=== PATIENT | male | born 1955 | race African-American/Black ===

== ENCOUNTER 2018-04-28 17:55 | Emergency (ER) | payer OTHER ==
[~2018-04-28] VITALS: Ht 175.3 cm; Wt 74.8 kg
[2018-04-28 18:06] VITALS: BP 147/77
[2018-04-28] MEDS ORDERED: ACETAMINOPHEN 325 MG TAB PO ONE (19:25)
[2018-04-28] MEDS ORDERED: KETOROLAC 30 MG/ML VIAL IM ONE (19:25)
[2018-04-28 20:01] VITALS: BP 147/77
== END 2018-04-28 20:02 | disposition home or self-care (01) ==
LOC: MED 17:55
DX: S73.101A Unspecified sprain of right hip, initial encounter (principal); S39.012A Strain of muscle, fascia and tendon of lower back, initial encounter; E11.9 Type 2 diabetes mellitus without complications; V23.4XXA Motorcycle driver injured in collision with car, pick-up truck or van in traffic accident, initial encounter; Y93.55 Activity, bike riding; Y92.488 Other paved roadways as the place of occurrence of the external cause; Y99.8 Other external cause status
CPT/HCPCS: 72110; 72220; 96372; 99284; J1885

== ENCOUNTER 2018-08-28 13:55 | Emergency (ER) | payer OTHER, MEDICAID ==
[~2018-08-28] VITALS: Ht 175.3 cm; Wt 74.8 kg
[2018-08-28 14:01] VITALS: BP 151/75
[2018-08-28] MEDS: BACITRACIN OINT 500 UNITS/GM PKT TP ONE (16:47)
[2018-08-28 17:57] VITALS: BP 140/72
== END 2018-08-28 17:56 | disposition home or self-care (01) ==
LOC: MED 13:55
DX: E11.621 Type 2 diabetes mellitus with foot ulcer (principal); L97.419 Non-pressure chronic ulcer of right heel and midfoot with unspecified severity
CPT/HCPCS: 73630; 87070; 87186; 99284

== ENCOUNTER 2018-09-12 15:58 | Inpatient (IN) | payer OTHER, MEDICAID ==
[~2018-09-12] VITALS: Ht 175.3 cm; Wt 72.6 kg
--- NOTE | 2018-09-12 16:16 | NUR ---
patient taken via wheelchair to er bed 4
[2018-09-12 16:19] VITALS: BP 162/78
--- NOTE | 2018-09-12 16:33 | NUR ---
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 PAIN 03/24 hx--dm rx---metformin 500mg bid, glipizide 10mg bid Addendum: 09/12/18 at 1724 by [email or web address] BLIND RIGHT EYE.
[2018-09-12] MEDS ORDERED: KETOROLAC 15 MG/ML VIAL IVP ONE (16:55)
[2018-09-12] MEDS ORDERED: NACL 0.9% 1,000 ML IV SCH (16:55)
[2018-09-12] MEDS ORDERED: ACETAMINOPHEN 325 MG TAB PO ONE (17:05)
--- NOTE | 2018-09-12 17:12 | NUR ---
X RAY AT BEDSIDE.
[2018-09-12 17:18] LABS: BASOPHILS % (AUTO) 0.2 % (0.0-2.0); EOSINOPHILS # (AUTO) 0.1 K/uL (0-0.4); EOSINOPHILS % (AUTO) 0.4 % (0.0-4.0); HEMATOCRIT 37.3 % (36-52); HEMOGLOBIN 12.2 g/dL (12.0-18.0); LYMPHOCYTES % (AUTO) 7.4 % (20.5-51.1); MEAN CORPUSCULAR HEMOGLOBIN 27 pg (27-31); MEAN CORPUSCULAR HGB CONC 33 g/dL (33-37); MONOCYTES # (AUTO) 0.7 K/uL (0.8-1.0); MONOCYTES % (AUTO) 5.3 % (1.7-9.3); NEUTROPHILS # (AUTO) 12.1 K/uL (1.8-7.7); NEUTROPHILS % (AUTO) 86.7 % (42.2-75.2); PLATELET COUNT (AUTO) 458 K/uL (140-450); RED BLOOD CELL COUNT(AUTO) 4.49 MIL/uL (4.20-6.10); RED CELL DISTRIBUTION WIDTH 13.3 % (11.6-13.7)
[2018-09-12 17:48] LABS: BILIRUBIN,URINE NEGATIVE (NEGATIVE); BLOOD, URINE 2+ (NEGATIVE); COLOR,URINE YELLOW (YELLOW); LEUKOCYTE ESTERASE ,URINE NEGATIVE (NEGATIVE); NITRITE, URINE NEGATIVE (NEGATIVE); UGLUCOSE 3+ (NEGATIVE)
[2018-09-12 17:49] LABS: APPEARANCE,URINE SLIGHTLY HAZY (CLEAR)
[2018-09-12 17:53] LABS: RBC,URINE 11-20 (MOD) /HPF (0-5); WBC,URINE 0-5 (RARE) /HPF (0-5)
[2018-09-12 18:09] LABS: ANION GAP 14.6 (8-16); CARBON DIOXIDE 31.6 mmol/L (21-32); CREATININE 1.5 mg/dL (0.7-1.3); POTASSIUM 5.2 mmol/L (3.5-5.1); TOTAL BILIRUBIN 0.4 mg/dL (0.0-1.0)
[2018-09-12] MEDS ORDERED: INSULIN REGULAR, HUMAN 100 UNIT/ML VIAL SUBQ ONE (18:20)
[2018-09-12] MEDS ORDERED: AMPICILLIN/SULBACTAM 3 GM in NACL 0.9% 100 ML IV ONE (18:20)
[2018-09-12] MEDS ORDERED: NACL 0.9% 1,000 ML IV ONE (18:20)
[2018-09-12] MEDS ORDERED: AMPICILLIN/SULBACTAM 3 GM VIAL ONE (18:33)
[2018-09-12] MEDS ORDERED: DOCUSATE SODIUM 100 MG GELCAP PO PRN (18:35)
[2018-09-12] MEDS ORDERED: HYDROcodone/APAP 5/325 MG 1 TAB TAB PO PRN (18:35)
[2018-09-12] MEDS ORDERED: MORPHINE SULFATE 2 MG/ML SYR IVP PRN (18:35)
[2018-09-12] MEDS ORDERED: ONDANSETRON 4 MG/2 ML VIAL IM/IVP PRN (18:35)
[2018-09-12] MEDS ORDERED: DEXTROSE 50% 50 ML SYR IVP PRN (18:35)
[2018-09-12] MEDS ORDERED: GLIP10TA3 PO (18:56)
[2018-09-12] MEDS ORDERED: METF500T2 PO (18:56)
--- NOTE | 2018-09-12 19:05 | NUR ---
PT TAKEN TO TELE FLOOR BY [facility] AND EMT KWESI
--- NOTE | 2018-09-12 19:15 | NUR ---
Admitted from ED , with chief complaint of BILATERAL FOOT PAIN. Pt is 63 y/o ,Male, Cooperative, Awake, Alert and Orientedx4. Pt oriented to call light, bed, phone,television, bathroom, smoking policy, visiting hours, procedures, ID bracelet on. Safety reinforced. Will continue to monitor.
--- NOTE | 2018-09-12 19:16 | NUR ---
Patient will be admitted to care of DR NEW. Admited to TELE. Will go to room 124B. Belongings list completed. Report to MOO MADRID.
[2018-09-12 19:41] LABS: THYROID STIMULATING HORMONE 2.01 uIU/mL (0.34-3.74)
[2018-09-12 19:53] LABS: BARBITURATE, URINE NEG. ng/ml (NEG <=200); BENZODIAZEPINE, URINE NEG. ng/mL (NEG <=200); CANNABINOID, URINE NEG. ng/mL (NEG <=50); COCAINE, URINE NEG. ng/mL (NEG <=300); OPIATE, URINE NEG. ng/mL (NEG <=2000); PHENCYCLIDINE SCREEN,URINE NEG. ng/mL (NEG <=25)
[2018-09-12 20:29] VITALS: BP 101/55
--- NOTE | 2018-09-12 20:30 | NUR ---
SEEN PT AWAKE, ALERT AND ORIENTED JUST FINISHED W/ ULTRASOUND OF HIS LEGS. PT'S IV ACCESS CAME OFF. WILL INSERT NEW IV. PT WANTS SOMETHING TO EAT. WILL ASK MD BECAUSE THE ORDER RIGHT NOW IS NPO AFTER MIDNIGHT. PT VERBALIZED UNDERSTANDING.
--- NOTE | 2018-09-12 20:50 | NUR ---
NEW IV INSERTED ON RT AC G20 W/ GOOD BLOOD RETURN. BLOOD SUGAR CHECKED: 250. WILL COVER WITH INSULIN PER SLIDING SCALE. 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 HE SAID HE CAN EAT WHATEVER IS AVAILABLE RIGHT NOW. WILL ASKED FOR TUNA SANDWICH AND SUGAR-FREE JELLO [facility]
--- NOTE | 2018-09-12 21:00 | NUR ---
ASKED MD ABOUT WOUND CULTURE. HE SAID "OK TO COLLECT IT." ASKED IF HE SAW THE K LEVEL OF 5.2 HE SAID "NO". HE LOOKED IT UP AND HE SAID, "I'LL ORDER LACTULOSE."
--- NOTE | 2018-09-12 21:05 | NUR ---
WOUND ON RT AND LEFT FOOT CLEANSED W/ SALINE AND SWABBED FOR CULTURE PER MD ORDER THEN OPTIFORM DRESSING APPLIED.
[2018-09-12] MEDS ORDERED: LACTULOSE 20 GM/30 ML UDC PO ONE (21:20)
[2018-09-12] MEDS: NACL 0.9% 1,000 ML IV SCH (21:30)
--- NOTE | 2018-09-12 21:30 | NUR ---
PT STARTED ON NS@ 60ML/HR ORDERED. INSULIN 4UNITS GIVEN PER SLIDING SCALE. LACTULOSE PO GIVEN FOR K OF 5.2 ORDERED. PT GIVEN TUNA SANDWICH AND JELLO. PT DENIES ANY OTHER NEEDS. CALL LIGHT W/IN REACH.
[2018-09-12] MEDS: BLOOD GLUCOSE MONITORING 1 DEV DEV FS SCH (21:31)
[2018-09-12] MEDS: INSULIN LISPRO SLIDING SCALE 100 UNITS/ML VIAL SUBQ PRN (21:45)
[2018-09-13 00:30] VITALS: BP 135/70
--- NOTE | 2018-09-13 00:30 | NUR ---
SEEN PT ASLEEP BUT AROUSABLE. VITAL SIGNS CHECKED. PT DENIES ANY DISCOMFORT. SAFETY ENSURED. CALL LIGHT W/IN REACH.
--- NOTE | 2018-09-13 01:40 | NUR ---
SPOKE TO MD RESIDENT REGARDING PT'S NEED FOR WOUND CULTURE OF LEFT FOOT. HE SAID "I'LL PUT THE ORDER IN."
[2018-09-13] MEDS ORDERED: cefTRIAXone 1,000 MG VIAL ONE (01:53)
[2018-09-13 05:00] VITALS: BP 128/51
[2018-09-13] MEDS ORDERED: CLINDAMYCIN 600 MG in DEXTROSE 5% 50 ML IV SCH (05:00)
--- NOTE | 2018-09-13 05:00 | NUR ---
SEEN PT COVERED W/ BLANKET. VITAL SIGNS CHECKED. PT HAS LOW GRADE TEMP OF 100.2 PT SAID BECAUSE HE WAS COVERED. PT DENIES ANY DISCOMFORT. IV ATB GIVEN W/ TEACHINGS. PT SAID HE HAD BM EARLIER ON BEDPAN. WILL CONTINUE TO MONITOR.
[2018-09-13] MEDS ORDERED: CLINDAMYCIN 600 MG/4 ML VIAL ONE (05:11)
--- NOTE | 2018-09-13 05:35 | NUR ---
PT'S RT FOOT DRAINING A LOT. WOUND CLEANSED AND COVERED W/ NON-ADHESIVE FOAM DRESSING AND ADVISED TO ELEVATE. PT VERBALIZED UNDERSTANDING. PT'S IV APPEARS SWOLLEN. IV STOPPED RIGHT NOW. ICE PACK APPLIED AND KEPT ELEVATED. WILL INSERT NEW IV.
[2018-09-13 06:30] LABS: BASOPHILS % (AUTO) 0.2 % (0.0-2.0); EOSINOPHILS # (AUTO) 0.2 K/uL (0-0.4); EOSINOPHILS % (AUTO) 1.2 % (0.0-4.0); HEMATOCRIT 32.7 % (36-52); HEMOGLOBIN 10.5 g/dL (12.0-18.0); LYMPHOCYTES # (AUTO) 0.6 K/uL (2.0-11.5); LYMPHOCYTES % (AUTO) 4.3 % (20.5-51.1); MEAN CORPUSCULAR HEMOGLOBIN 27 pg (27-31); MEAN CORPUSCULAR HGB CONC 32 g/dL (33-37); MEAN CORPUSCULAR VOLUME 82.6 fL (80-94); MONOCYTES # (AUTO) 0.8 K/uL (0.8-1.0); NEUTROPHILS # (AUTO) 11.5 K/uL (1.8-7.7); NEUTROPHILS % (AUTO) 88.3 % (42.2-75.2); PLATELET COUNT (AUTO) 358 K/uL (140-450); RED BLOOD CELL COUNT(AUTO) 3.96 MIL/uL (4.20-6.10); RED CELL DISTRIBUTION WIDTH 13.1 % (11.6-13.7)
[2018-09-13 06:57] LABS: CREATININE 1.3 mg/dL (0.7-1.3)
[2018-09-13] MEDS: BLOOD GLUCOSE MONITORING 1 DEV DEV FS SCH ×4 (07:00→22:12)
[2018-09-13] MEDS: INSULIN LISPRO SLIDING SCALE 100 UNITS/ML VIAL SUBQ PRN ×4 (07:02→22:14)
[2018-09-13 07:07] LABS: CHOL/HDL RATIO 5.4 (1-4.5)
--- NOTE | 2018-09-13 07:21 | NUR ---
RECEIVED REPORT FROM SUPERVISOR WEAVING NURSE. PT LAYING IN BED. PT IS AAOX4, NO COMPLAINTS OF PAIN. NO DISTRESS OR SOB NOTED. PT HAS IV IN LEFT FA, 22G, PATENT AND INTACT, FLUSHING WELL. NS FUNNING AT 60ML/HR. PT ON RA, HAS CRUTCHES AT BEDSIDE. URINAL ALSO AT BEDSIDE FOR EASE OF VOIDING. PT HAS RIGHT AND LEFT FOOT ULCERS. BANDAGED AND INTACT. NO DRAINAGE NOTED. ALL NEEDS MET AT THIS TIME. WILL ROUND FREQUENTLY. BED IN LOW POSITION, CALL LIGHT WITHIN REACH.
[2018-09-13] MEDS: glipiZIDE 10 MG TAB PO SCH ×2 (07:35→17:34)
--- NOTE | 2018-09-13 07:54 | NUR ---
PATIENT HAS BEEN SCREENED AND CATEGORIZED HIGH NUTRITION RISK. PATIENT WILL BE SEEN WITHIN 1-2 DAYS OF ADMISSION. 09/13/18-09/14/[address]
[2018-09-13 08:00] VITALS: BP 129/57
[2018-09-13] MEDS ORDERED: metFORMIN 500 MG TAB PO SCH (08:00)
--- NOTE | 2018-09-13 08:54 | NUR ---
ADMINISTERED MORNING MED TO PT. PT TOLERATED MED WELL. ALL NEEDS CURRENTLY MET. WILL CONTINUE TO MONITOR PT CLOSELY. BED IN LOW POSITION. CALL LIGHT WITHIN REACH.
--- NOTE | 2018-09-13 10:20 | NUR ---
PT IN BED SLEEPING. NO SIGNS OF PAIN OR DISTRESS NOTED AT THIS TIME. WILL CONTINUE TO ROUND FREQUENTLY ON PT. BED IN LOW POSITION, CALL LIGHT WITHIN REACH.
[2018-09-13] MEDS: NACL 0.9% 1,000 ML IV SCH (11:13)
[2018-09-13 12:00] VITALS: BP 131/63
[2018-09-13] MEDS: ACETAMINOPHEN 325 MG TAB PO PRN ×2 (12:30→20:29)
[2018-09-13] MEDS: CLINDAMYCIN PHOS 600MG/D5W PM 50 ML IV SCH ×2 (12:31→20:29)
--- NOTE | 2018-09-13 12:40 | NUR ---
ADMINISTERED PT'S SCHEDULED MEDICATION WELL INSULIN HUMALOG 4U FOR 237 BS. ALSO GAVE PT TYLENOL 650MG FOR FEVER. PT TEMP AT 102.2. COOLING MEASURES ALSO IN PLACE. ALL OTHER NEEDS MET AT THIS TIME. WILL CONTINUE TO MONITOR PT CLOSELY. WILL REASSESS PT FOR MED EFFECTIVENESS. BED IN LOW POSITION. CALL LIGHT WITHIN REACH
--- NOTE | 2018-09-13 12:53 | NUR ---
09/13/18 RD INITIAL ASSESSMENT COMPLETED PLEASE REFER TO NUTRITION ASSESSMENT UNDER CARE ACTIVITY FOR ESTIMATED NUTRITIONAL NEEDS. 1. CONTINUE 60 GM CCHO DIET TOLERATED 2. RECOMMEND MANNY BID 3. RD ATTEMPTED DIABETIC NUTRITION EDUCATION, LEFT AT BEDSIDE 4. RD TO FOLLOW-UP 3-5 DAYS, MODERATE RISK LONNIE RIVAS, RD
--- NOTE | 2018-09-13 15:32 | NUR ---
PT SLEEPING IN BED. NO SIGNS OF DISTRESS OF PAIN. ALL NEEDS MET. BED IN LOW POSITION, CALL LIGHT WITHIN REACH
[2018-09-13 16:00] VITALS: BP 108/52
[2018-09-13] MEDS: metFORMIN 500 MG TAB PO SCH (17:34)
--- NOTE | 2018-09-13 19:46 | NUR ---
ENDORSED PT TO EQUIPMENT SUPERINTENDENT FOR CONTINUITY OF CARE. PT IN STABLE CONDITION.
[2018-09-13 20:00] VITALS: BP 133/56
[2018-09-13] MEDS ORDERED: VANCOMYCIN PER PHARMACY MC PRN (22:15)
[2018-09-13] MEDS ORDERED: VANCOMYCIN 1,000 MG in DEXTROSE 5% 250 ML IV SCH (23:00)
[2018-09-14] VITALS: BP 127/77
[2018-09-14] MEDS ORDERED: PIPERACILLIN/TAZOBACTAM 3.375 GM VIAL IV ONE ×2 (00:57→05:07)
[2018-09-14] MEDS: PIPER/TAZO 3.375GM/D5W PREMIX 50 ML IV SCH ×4 (00:57→17:19)
[2018-09-14] MEDS ORDERED: VANCOMYCIN 1,000 MG VIAL ONE (01:24)
[2018-09-14] MEDS: INSULIN LISPRO SLIDING SCALE 100 UNITS/ML VIAL SUBQ PRN ×3 (05:26→21:42)
[2018-09-14] MEDS: NACL 0.9% 1,000 ML IV SCH (06:11)
[2018-09-14] MEDS: BLOOD GLUCOSE MONITORING 1 DEV DEV FS SCH ×4 (06:12→21:25)
[2018-09-14] MEDS: glipiZIDE 10 MG TAB PO SCH ×2 (06:34→17:19)
--- NOTE | 2018-09-14 07:29 | NUR ---
ENDORSED REPORT TO DAYSHIFT NURSE AT BEDSIDE FOR CONTINUITY OF CARE.
--- NOTE | 2018-09-14 07:32 | NUR ---
RECEIVED REPORT FROM BILLET SAWYER NURSE. PT SLEEPING IN BED. PT IS AAOX4, NO COMPLAINTS OF PAIN. NO DISTRESS OR SOB NOTED. PT HAS IV IN LEFT FA, 22G, PATENT AND INTACT, FLUSHING WELL. NS RUNNING AT 60ML/HR. PT ON RA, HAS CRUTCHES AT BEDSIDE. URINAL ALSO AT BEDSIDE FOR EASE OF VOIDING. PT HAS RIGHT AND LEFT FOOT ULCERS. BANDAGED AND INTACT. MINIMAL DRAINAGE NOTED. ALL NEEDS MET AT THIS TIME. WILL ROUND FREQUENTLY. BED IN LOW POSITION, CALL LIGHT WITHIN REACH.
[2018-09-14 08:00] VITALS: BP 106/54
[2018-09-14 08:07] LABS: BASOPHILS % (AUTO) 0.4 % (0.0-2.0); EOSINOPHILS # (AUTO) 0.2 K/uL (0-0.4); EOSINOPHILS % (AUTO) 1.7 % (0.0-4.0); HEMATOCRIT 29.3 % (36-52); HEMOGLOBIN 9.4 g/dL (12.0-18.0); LYMPHOCYTES # (AUTO) 0.8 K/uL (2.0-11.5); LYMPHOCYTES % (AUTO) 7.8 % (20.5-51.1); MEAN CORPUSCULAR HEMOGLOBIN 27 pg (27-31); MEAN CORPUSCULAR HGB CONC 32 g/dL (33-37); MEAN CORPUSCULAR VOLUME 82.9 fL (80-94); MONOCYTES # (AUTO) 0.9 K/uL (0.8-1.0); MONOCYTES % (AUTO) 8.2 % (1.7-9.3); NEUTROPHILS # (AUTO) 8.6 K/uL (1.8-7.7); NEUTROPHILS % (AUTO) 81.9 % (42.2-75.2); PLATELET COUNT (AUTO) 333 K/uL (140-450); RED BLOOD CELL COUNT(AUTO) 3.53 MIL/uL (4.20-6.10); RED CELL DISTRIBUTION WIDTH 13.3 % (11.6-13.7); WHITE BLOOD COUNT (AUTO) 10.5 K/uL (4.8-10.8)
[2018-09-14 08:20] LABS: ANION GAP 8.7 (8-16); CARBON DIOXIDE 28.5 mmol/L (21-32); CREATININE 1.3 mg/dL (0.7-1.3); POTASSIUM 4.2 mmol/L (3.5-5.1)
[2018-09-14 08:24] LABS: MAGNESIUM 1.5 mg/dL (1.8-2.4); PHOSPHORUS 2.7 mg/dL (2.5-4.9)
[2018-09-14] MEDS: ATORVASTATIN 20 MG TAB PO SCH (09:00)
[2018-09-14] MEDS: LISINOPRIL 5 MG TAB PO SCH (09:00)
[2018-09-14] MEDS: ASPIRIN 81 MG TAB.CHEW PO SCH ×2 (09:00→09:03)
[2018-09-14] MEDS: metFORMIN 500 MG TAB PO SCH ×2 (09:02→17:19)
[2018-09-14] MEDS: ACETAMINOPHEN 325 MG TAB PO PRN (09:02)
[2018-09-14] MEDS: LACTOBACILLUS RHAMNOSUS GG 1 EACH CAP PO SCH (09:06)
--- NOTE | 2018-09-14 09:14 | NUR ---
MORNING SCHEDULED MEDS WERE ADMINISTERED TO PT. PT TOLERATED MEDS WELL. PT REFUSED TO TAKE ASPIRIN, LIPITOR, AND ZESTRIL BECAUSE HE STATES THAT HE HAS NEVER TAKE THOSE MEDICATIONS AND THAT HE DOES NOT NEED THEM. EDUCATION WAS GIVEN TO PT ON THE REASONING BEHIND THE DR PRESCRIBING THOSE MEDS BUT PT STILL REFUSED. MEDICATIONS WERE RETURNED TO [facility]. ALL OTHER NEEDS MET AT THIS TIME. BED IN LOW POSITION, CALL LIGHT WITHIN REACH
--- NOTE | 2018-09-14 10:10 | NUR ---
Late entry. Confirmed with nurse that an error was made in the end time on 1000cc IV 0.9 NS ended at 1800 not 1000.
--- NOTE | 2018-09-14 12:41 | NUR ---
PT RESTING IN BED. NO COMPLAINTS OF PAIN OR FEVER AT THIS TIME. WILL CONTINUE TO ROUND FREQUENTLY. BED IN LOW POSITION, CALL LIGHT WITHIN REACH. BED ALARM ACTIVATED.
--- NOTE | 2018-09-14 15:46 | NUR ---
PT RESTING IN BED WATCHING TV. NO PAIN AT THIS TIME. WILL CONTINUE TO ROUND FREQUENTLY.
[2018-09-14 16:00] VITALS: BP 130/60
--- NOTE | 2018-09-14 16:34 | NUR ---
PT BS IS 169. PT IS REFUSING HUMALOG AT THIS TIME. PT STABLE AND IN STABLE CONDITION. NO PAIN OR DISCOMFORT. BED IN LOW POSITION, CALL LIGHT WITHIN REACH.
--- NOTE | 2018-09-14 19:27 | NUR ---
RECEIVED REPORT FROM GARCIA MADRID DAYSHIFT NURSE AT BEDSIDE FOR CONTINUITY OF CARE, PT IN STABLE CONDITION.
--- NOTE | 2018-09-14 19:27 | NUR ---
ENDORSED PT TO SOLDERING MACHINE SETTER FOR CONTINUITY OF CARE. PT IN STABLE CONDITION.
[2018-09-14] MEDS ORDERED: VANCOMYCIN 1GM/DEXT 5% PREMIX 200 ML IV SCH (20:00)
--- NOTE | 2018-09-14 20:00 | NUR ---
PT IN BED,WITH SIDE RAILS UP X2 AND ALL FALLS PRECAUTIONS IN PLACE. V/S FOLLOWS: T 100.1 P 72 R 18 B/P 123/63 02 98% WITH R/A. PT OFFERED COOLING MEASURES, BUT DECLINED, HE SAID THAT HE HAD THE BLANKETS OVER HIS HEAD. HE REQUEST TO HAVE TEMP RETAKEN SHORTY TO DOUBLE CHECK THAT HE IS NOT HAVING A FEVER. PRIMARY NURSE AGREED. PT HAD NO C/O OF PAIN OR DISTRESS, DRESSING TO LEFT HEEL INTACT WITH SOME DRAINAGE NOTED.WILL CHANGE DRESSING OF FOOT LATER.
--- NOTE | 2018-09-14 21:00 | NUR ---
PT IN BED WITH ALL FALLS PRECAUTIONS IN PLACE. PT GIVEN ORDERED MAG OXIDE 400MG FOR LOW MAGNESIUM AT (1.5). PT FINGERSTICK IS 204, GIVEN 4 UNITS OF HUMALOG SUB Q PRN FOR INCREASED BLOOD SUGAR. PT REQUEST A SNACK OF SUGAR FREE JELLO. PT GIVEN DIABETIC SNACK AND SUGAR FREE JELLO. PT DECLINED ORDERED SNACK FOR JUST SUGAR FREE JELLO. PT HAS NO C/O OF PAIN OR DISTRESS NOTED. TEMPERATURE WAS RETAKEN AND WAS 99.2. WILL CONTINUE TO MONITOR TEMP AND WILL REDRESS PT FOOT WOUND.
[2018-09-14] MEDS: MAGNESIUM OXIDE 400 MG TAB PO SCH (21:27)
--- NOTE | 2018-09-15 | NUR ---
BUZZ HUNG ORDERED.
[2018-09-15] MEDS: NACL 0.9% 1,000 ML IV SCH (00:01)
[2018-09-15] MEDS: PIPER/TAZO 3.375GM/D5W PREMIX 50 ML IV SCH ×3 (00:03→12:23)
--- NOTE | 2018-09-15 00:15 | NUR ---
PT IN BED RESTING WITH EYES CLOSED. NO C/O VOICED. V/S FOLLOWS T 97.9 P 74 R 18 B/P 124/61 02 96% ON R/A. WOUND DRESSING SOILED WITH DRAINAGE. WOUND WAS CLEANSED AND DRESSED ORDERED. NO FOUL ODOR NOTED. EDGES OF WOUND ARE MACERATED. PT HAS NO C/O OF PAIN OR DISTRESS NOTED.
--- NOTE | 2018-09-15 04:00 | NUR ---
PT IN BED SLEEPING NO S/S OF PAIN OR DISTRESS IV SITE INTACT AND RUNNING NS AT 40MLS/HR ORDERED. ALL FALLS PRECAUTIONS IN PLACE.
[2018-09-15] MEDS: BLOOD GLUCOSE MONITORING 1 DEV DEV FS SCH ×4 (06:29→20:30)
--- NOTE | 2018-09-15 06:30 | NUR ---
PT FINGERSTICK WAS 158 , PT DECLINED THE 2 UNIT HUMALOG COVERAGE.
[2018-09-15 06:33] LABS: BASOPHILS % (AUTO) 0.3 % (0.0-2.0); EOSINOPHILS # (AUTO) 0.3 K/uL (0-0.4); EOSINOPHILS % (AUTO) 2.8 % (0.0-4.0); HEMATOCRIT 28.5 % (36-52); HEMOGLOBIN 9.3 g/dL (12.0-18.0); LYMPHOCYTES # (AUTO) 1.1 K/uL (2.0-11.5); LYMPHOCYTES % (AUTO) 11.4 % (20.5-51.1); MEAN CORPUSCULAR HEMOGLOBIN 27 pg (27-31); MEAN CORPUSCULAR HGB CONC 33 g/dL (33-37); MEAN CORPUSCULAR VOLUME 82.2 fL (80-94); MONOCYTES # (AUTO) 0.9 K/uL (0.8-1.0); MONOCYTES % (AUTO) 8.8 % (1.7-9.3); NEUTROPHILS # (AUTO) 7.4 K/uL (1.8-7.7); NEUTROPHILS % (AUTO) 76.7 % (42.2-75.2); PLATELET COUNT (AUTO) 348 K/uL (140-450); RED BLOOD CELL COUNT(AUTO) 3.47 MIL/uL (4.20-6.10); RED CELL DISTRIBUTION WIDTH 13.6 % (11.6-13.7); WHITE BLOOD COUNT (AUTO) 9.7 K/uL (4.8-10.8)
[2018-09-15 06:40] LABS: ANION GAP 9.3 (8-16); CARBON DIOXIDE 28.8 mmol/L (21-32); CREATININE 1.3 mg/dL (0.7-1.3); POTASSIUM 4.1 mmol/L (3.5-5.1)
[2018-09-15 06:46] LABS: MAGNESIUM 1.6 mg/dL (1.8-2.4); PHOSPHORUS 3.4 mg/dL (2.5-4.9)
--- NOTE | 2018-09-15 07:30 | NUR ---
REPORT GIVEN TO ITALIA RN DAYSHIFT NURSE AT BEDSIDE FOR CONTINUITY OF CARE, PT IN STABLE CONDITION.
--- NOTE | 2018-09-15 07:31 | NUR ---
RECEIVED BEDSIDE REPORT FROM PLANT PRODUCTION WORKER NURSE. PATIENT IS AWAKE, ALERT AND ORIENTEDX4. NO SIGNS OF DISTRESS ON RA. PATIENT AMBULATES W ASSIST. CRUTCHES ARE AT BEDSIDE. FALL RISK PROTOCOL IN PLACE. R FOOT HAS DM ULCER, DRESSING IS INTACT. R FOOT FIRST TWO TOES AMPUTATED. MED SURGE PATIENT. IV ON L FA 22G INFUSING NS AT 40. CLEAN, DRY AND INTACT. PATIENT IS CONTINENT. BED IN LOW POSITION. CALL LIGHT WITHIN REACH. WILL CONTINUE TO MONITOR THE PATIENT.
[2018-09-15 08:00] VITALS: BP 149/70
[2018-09-15] MEDS: glipiZIDE 10 MG TAB PO SCH ×2 (08:18→17:19)
[2018-09-15] MEDS: LACTOBACILLUS RHAMNOSUS GG 1 EACH CAP PO SCH (08:19)
[2018-09-15] MEDS: ASPIRIN 81 MG TAB.CHEW PO SCH (08:19)
[2018-09-15] MEDS: MAGNESIUM OXIDE 400 MG TAB PO SCH ×2 (08:19→20:28)
[2018-09-15] MEDS: ATORVASTATIN 20 MG TAB PO SCH (08:20)
[2018-09-15] MEDS: metFORMIN 500 MG TAB PO SCH ×2 (08:20→17:19)
[2018-09-15] MEDS: LISINOPRIL 5 MG TAB PO SCH (08:20)
--- NOTE | 2018-09-15 08:22 | NUR ---
ADMINISTERED MEDS. PATIENT TOLERATED WELL. PATIENT REFUSED LISINOPRIL, ATORVASTATIN AND ASPRIN. HE SAID SHE DOES NOT NEED THE MEDICATION. EDUCATED ON THE IMPORTANCE. PATIENT STILL REFUSED. HE SAID HE DOES NOT TAKE THEM AT HOME AND DOES NOT NEED THEM NOW
--- NOTE | 2018-09-15 09:18 | NUR ---
PATIENT LEFT IN STABLE CONDITION W NM IN WHEELCHAIR.
--- NOTE | 2018-09-15 10:00 | NUR ---
PATIENT BACK FROM [place] IN STABLE CONDITION.
--- NOTE | 2018-09-15 10:28 | NUR ---
FAXED INQUIRY TO [facility],
[2018-09-15] MEDS ORDERED: MAG SULF 2000 MG/WATER PREMIX 50 ML IV SCH (10:30)
--- NOTE | 2018-09-15 10:36 | NUR ---
CALLED [facility] AND FAXED ORDER FOR CAM BOOT TO [phone]. PHONE [phone]. SPOKE WITH DEIDRE. ALSO FAXED FACE SHEET.
--- NOTE | 2018-09-15 11:22 | NUR ---
WOUND CARE EVALUATION TO RIGHT HEEL AND LEFT PLANTAR FOOT. PT. SEEN BY SUPERVISOR MIXING DR. RANKIN AND PT.REFUSED DEBRIDEMENT. TODAY'S EVALUATION PT STILL REFUSES DEBRIDEMENT, DR. CALZADA AT BED SIDE, PLAN OF CARE DISCUSSED AND WILL CONTINUE TO FOLLOW DR. RANKIN'S ORDERS: -CLEANSE RIGHT HEEL AND LEFT FOOT WITH WOUND CARE SOLUTION, APPLY SOAKED BETADINE DRESSING , COVER WITH DRY DRESSING AND SECURE WITH TAPE. -CAM WALKING BOOT TO RIGHT FOOT. INTEGUMENTARY: -RIGHT HEEL DIABETIC ULCER UN-STAGEABLE, 3.5X3.5 CM WITH 100 % YELLOW SLOUGH COVERED WOUND BED, MOLD ODOR, SMALL AMOUNT OF PURULENT DRAINAGE, PERIWOUND SKIN INTACT. PAIN 0/10 -LEFT FIRST METATARSAL PLANTAR FOOT DRY SCAB 3.5X3.5CM, PERIWOUND SKIN INTACT. PAIN 0/10
[2018-09-15] MEDS: INSULIN LISPRO SLIDING SCALE 100 UNITS/ML VIAL SUBQ PRN ×3 (12:29→20:34)
--- NOTE | 2018-09-15 12:29 | NUR ---
ADMINISTERED MEDS. PATIENT TOLERATED WELL. WILL CONTINUE TO MONITOR THE PATIENT.
--- NOTE | 2018-09-15 12:53 | NUR ---
RECEIVED A CALL FROM WINIFRED AT [facility]. HE WAS INFORMED THAT PATIENT IS ON CONTACT ISOLATION HERE. HE SAID THE PATIENT CAN GO TO ROOM 210B UNDER DR. DIOR TOMORROW. WINIFRED FROM [facility] WILL ARRANGE FOR TRANSPORT, JUST CALL HIM AT [phone] TOMORROW.
--- NOTE | 2018-09-15 13:20 | NUR ---
PATIENT LEFT IN STABLE CONDITION W NM
--- NOTE | 2018-09-15 14:01 | NUR ---
PATIENT BACK FROM [place] IN STABLE CONDITION
--- NOTE | 2018-09-15 14:07 | NUR ---
RECEIVED A CALL FROM [facility] , BEBE. SHE SAID THAT THEY ARE SHORT STAFFED AND CANNOT DO THE CAM BOOT. ELIZABETH MADRIDSQL REPORT ANALYST DIRECTOR AWARE. I CALLED [facility] AND SPOKE WITH WINIFRED TO FIND OUT IF THEY USE ANY PROSTHETICS FOR CAM BOOTS AND HE WOULD FIND OUT AND CALL ME BACK.
--- NOTE | 2018-09-15 14:32 | NUR ---
RECEIVED A CALL FROM WINIFRED FROM [facility]. HE SAID THEY HAVE 2 CAM BOOTS THERE, MEDIUM AND LARGE AND IF THEY DIDN'T FIT THEY WOULD CALL A GET A CAM BOOT TO FIT. THEY WILL DO THIS AFTER THE PATIENT COMES TO THEIR FACILITY.
[2018-09-15 16:00] VITALS: BP 125/81
--- NOTE | 2018-09-15 16:00 | NUR ---
TEMP IS 100.2 PATIENT REFUSED COOLING MEASURES. HE SAID HE COVERED HIS HEAD W THE BLANKET AND HIS TEMP WILL GO BACK DOWN SOON
--- NOTE | 2018-09-15 16:44 | NUR ---
PATIENT SAID HIS IV IS BURNING. FLUSHED IT NO SIGNS OF INFILTRATION, AFTER I FLUSHED IT HE SAID THE BURNING WENT AWAY. WILL KEEP AN EYE OUT FOR THE IV
[2018-09-15] MEDS: AMPICILLIN/SULBACTAM 3 GM in NACL 0.9% 100 ML IV SCH (17:20)
--- NOTE | 2018-09-15 17:28 | NUR ---
TEMP IS NOW 98.8. ADMINISTERED MEDS. PATIENT TOLERATED WELL.
--- NOTE | 2018-09-15 17:30 | NUR ---
PATIENT IS AWAKE, ALERT, RESPIRATION EVEN AND UNLABORED ON ROOM AIR. DENIES PAIN AND DISCOMFORT. SKIN IS WARM AND DRY. IV INTACT AND PATENT. PLAN OF CARE WAS DISCUSSED. BED IS IN LOW POSITION. CALL LIGHT WITHIN REACH. WILL CONTINUE TO MONITOR. Addendum: 09/16/18 at 0543 by Kolton Lara RN WRONG TIME
--- NOTE | 2018-09-15 19:30 | NUR ---
PATIENT IS AWAKE, ALERT, RESPIRATION EVEN AND UNLABORED ON ROOM AIR. DENIES PAIN AND DISCOMFORT. SKIN IS WARM AND DRY. IV INTACT AND PATENT. PLAN OF CARE WAS DISCUSSED. BED IS IN LOW POSITION. CALL LIGHT WITHIN REACH. WILL CONTINUE TO MONITOR.
[2018-09-15] MEDS ORDERED: ASPI81CT95 PO (19:58)
[2018-09-15] MEDS ORDERED: D50SYR IVP (19:58)
[2018-09-15] MEDS ORDERED: HUMSLIDE SUBQ (19:58)
[2018-09-15] MEDS ORDERED: DOCU-299 PO (19:58)
[2018-09-15] MEDS ORDERED: ONDA2SOL45 IM/IVP (19:58)
[2018-09-15] MEDS ORDERED: MORP2SOL18 IVP (19:58)
[2018-09-15] MEDS ORDERED: MAG400 PO (19:58)
[2018-09-15] MEDS ORDERED: LACT10CA PO (19:58)
[2018-09-15] MEDS ORDERED: GLUC-805 FS (19:58)
[2018-09-15] MEDS ORDERED: METF500T PO (19:58)
[2018-09-15] MEDS ORDERED: GLIP10TA12 PO (19:58)
[2018-09-15] MEDS ORDERED: LISI-424 PO (19:58)
[2018-09-15] MEDS ORDERED: ACET-1182 PO (19:58)
[2018-09-15] MEDS ORDERED: ACET-9525 PO (19:58)
[2018-09-15] MEDS ORDERED: ATOR20TA40 PO (19:58)
[2018-09-15] MEDS ORDERED: [UNRECOGNIZED DRUG - CODE] IV (20:04)
--- NOTE | 2018-09-15 20:28 | NUR ---
PATIENT IS AWAKE, ALERT, RESPIRATION EVEN AND UNLABORED ON ROOM AIR. DENIES PAIN. MEDS WERE GIVEN PER ORDER. VITAL SIGNS STABLE. CALL LIGHT WITHIN REACH. WILL CONTINUE TO MONITOR.
--- NOTE | 2018-09-15 21:30 | NUR ---
PATIENT IV INFILTRATED. INSERTED A NEW IV SITE TO THE LEFT UPPER ARM 22G.
[2018-09-16] VITALS: BP 127/62
--- NOTE | 2018-09-16 | NUR ---
PATIENT IS SLEEPING AT THIS TIME NO DISTRESS NOTED. VITAL SIGN STABLE. BED IN LOW POSITION. CALL LIGHT WITHIN REACH.
[2018-09-16] MEDS: AMPICILLIN/SULBACTAM 3 GM in NACL 0.9% 100 ML IV SCH ×3 (01:34→12:11)
[2018-09-16] MEDS: NACL 0.9% 1,000 ML IV SCH (03:18)
[2018-09-16] MEDS ORDERED: AMPICILLIN/SULBACTAM 3 GM VIAL ONE (05:58)
[2018-09-16] MEDS: INSULIN LISPRO SLIDING SCALE 100 UNITS/ML VIAL SUBQ PRN ×2 (06:03→12:06)
[2018-09-16] MEDS: BLOOD GLUCOSE MONITORING 1 DEV DEV FS SCH ×2 (06:04→12:13)
[2018-09-16] MEDS ORDERED: VANCOMYCIN PER PHARMACY MC PRN (06:10)
[2018-09-16] MEDS: glipiZIDE 10 MG TAB PO SCH (06:42)
[2018-09-16 06:52] LABS: BASOPHILS % (AUTO) 0.4 % (0.0-2.0); EOSINOPHILS # (AUTO) 0.2 K/uL (0-0.4); EOSINOPHILS % (AUTO) 1.9 % (0.0-4.0); HEMATOCRIT 30.7 % (36-52); LYMPHOCYTES # (AUTO) 1.1 K/uL (2.0-11.5); LYMPHOCYTES % (AUTO) 13.8 % (20.5-51.1); MEAN CORPUSCULAR HEMOGLOBIN 27 pg (27-31); MEAN CORPUSCULAR HGB CONC 33 g/dL (33-37); MEAN CORPUSCULAR VOLUME 82.2 fL (80-94); MONOCYTES # (AUTO) 0.8 K/uL (0.8-1.0); MONOCYTES % (AUTO) 9.2 % (1.7-9.3); NEUTROPHILS # (AUTO) 6.1 K/uL (1.8-7.7); NEUTROPHILS % (AUTO) 74.7 % (42.2-75.2); PLATELET COUNT (AUTO) 421 K/uL (140-450); RED BLOOD CELL COUNT(AUTO) 3.73 MIL/uL (4.20-6.10); RED CELL DISTRIBUTION WIDTH 13.6 % (11.6-13.7); WHITE BLOOD COUNT (AUTO) 8.2 K/uL (4.8-10.8)
[2018-09-16 07:20] LABS: ANION GAP 8.9 (8-16); CARBON DIOXIDE 29.1 mmol/L (21-32)
[2018-09-16 07:27] LABS: MAGNESIUM 1.9 mg/dL (1.8-2.4); PHOSPHORUS 3.4 mg/dL (2.5-4.9)
--- NOTE | 2018-09-16 07:32 | NUR ---
ENDORSED PATIENT TO CLAYTON WHIPPLE NURSE FOR CONTINUITY OF CARE. PATIENT IS STABLE AT THIS TIME.
--- NOTE | 2018-09-16 07:36 | NUR ---
RECEIVED BEDSIDE REPORT FROM MUSIC ARRANGER NURSE. PT IS AOX4, RESTING IN BED. NO S/S DISTRESS. RESPIRATIONS EVEN AND UNLABORED. DENIES PAIN AND DISCOMFORT. PER MUSIC ARRANGER RN, PT IS AMBULATORY WITH ASSIST. CRUTCHES AT BEDSIDE. PT INSTRUCTED TO CALL FOR ASSISTANCE BEFORE WALKING, PT VERBALIZED COMPLETE UNDERSTANDING. R FOOT DIABETIC ULCER NOTED, DRESSING C/D/I. R FOOT FIRST TWO METATARSALS AMPUTATED. IV ON L FA 22G PATENT AND ASYMPTOMATIC, INFUSING NS AT 40CC/HR. ALL SAFETY PRECAUTIONS IN PLACE, WILL CONTINUE TO MONITOR.
[2018-09-16 08:00] VITALS: BP 135/70
[2018-09-16] MEDS: LISINOPRIL 5 MG TAB PO SCH ×2 (08:40→08:44)
[2018-09-16] MEDS: MAGNESIUM OXIDE 400 MG TAB PO SCH (08:41)
[2018-09-16] MEDS: ASPIRIN 81 MG TAB.CHEW PO SCH ×2 (08:41→08:44)
[2018-09-16] MEDS: metFORMIN 500 MG TAB PO SCH (08:41)
[2018-09-16] MEDS: ATORVASTATIN 20 MG TAB PO SCH ×2 (08:41→08:44)
[2018-09-16] MEDS: LACTOBACILLUS RHAMNOSUS GG 1 EACH CAP PO SCH (08:41)
--- NOTE | 2018-09-16 08:48 | NUR ---
PATIENT REFUSED ASPIRIN, ATORVASTATIN, AND LISINOPRIL. EXPLAINED INDICATIONS FOR AND RISKS & BENEFITS OF EACH MEDICATION. PT VERBALIZED UNDERSTANDING BUT CONTINUES TO REFUSE. UNABLE TO RETURN ASPIRIN TO [facility]- MED HAS BEEN OPENED. WILL RETURN ALL OTHER MEDS.
[2018-09-16] MEDS ORDERED: AMOX-999 PO (09:29)
[2018-09-16] MEDS ORDERED: [UNRECOGNIZED DRUG - CODE] IV (09:29)
[2018-09-16] MEDS ORDERED: CIPR500T4 PO (09:31)
--- NOTE | 2018-09-16 09:57 | NUR ---
CALLED [facility] LEFT A MESSAGE FOR WINIFRED TO ARRANGE THE TRANSPORT ,AWAITING FOR WINIFRED
--- NOTE | 2018-09-16 11:35 | NUR ---
DRESSING ON RIGHT FOOT FELL OFF. ASKED TO TAKE PHOTOS OF BILATERAL HEELS SINCE THERE IS PLAN FOR D/C TODAY. PT REFUSED, STATES PHOTOS HAD ALREADY "BEEN TAKEN A FEW DAYS AGO" AND THERE IS "NO CHANGE". INFORMED PT THAT PER HOSPITAL POLICY, WE NEED D/C PHOTOS. PT CONTINUES TO REFUSE PHOTOS BEING TAKEN. NEW DRESSING APPLIED TO RT FOOT.
--- NOTE | 2018-09-16 11:50 | NUR ---
CONTACTED [facility] [phone] TO SET UP TRANSPORT. [facility] WILL CALL ME BACK WITH ROAD HOGGER OPERATOR DETAILS.
--- NOTE | 2018-09-16 13:00 | NUR ---
Hand Router Operator Notes: I contacted Beth from admissions at [facility] to discuss and arrange patients discharge today. Beth agreed and stated that they are expecting Patient to discharge today and she has arranged his transportation to their facility with [place] and patient will be pickers material handlers from [facility] at about 3:30 to 4:00PM. Beth stated that she did spoke to BAND MACHINE OPERATOR and caser yesterday and she do not need any other Patient information that she has all Patient's clinical information already. She thanked me for the communication and ended the call.
--- NOTE | 2018-09-16 14:58 | NUR ---
CALLED [facility] TO GIVE REPORT. PER FUNDRAISING CONSULTANT, IT IS SHIFT CHANGE NOW AND ACCEPTING RN IS NOT AVAILABLE. LEFT MESSAGE FOR RN TO CALL ME BACK FOR REPORT.
--- NOTE | 2018-09-16 16:00 | NUR ---
DISCHARGE PAPERWORK, INCLUDING INSTRUCTIONS TO F/U WITH TRANSITIONS RN CARE COORDINATOR AND PCP, GIVEN TO PT. ABX REGIMEN AND WOUND CARE INSTRUCTIONS EXPLAINED TO PT. NEW MED TEACHING AND MED RECONCILIATION TEACHING GIVEN. PT VERBALIZED COMPLETE UNDERSTANDING OF ALL D/C TEACHING. PT REFUSED FLU VACCINE AND PNEUMOVAX. VACCINATION DECLINATION TEACHING GIVEN. ID BANDS REMOVED. IV SITE LEFT IN PLACE. ALL PERSONAL BELONGINGS ARE WITH PATIENT. TRANSPORTERS HERE TO CREMATORY OPERATOR PATIENT FOR TRANSFER TO [facility].
--- NOTE | 2018-09-16 16:07 | NUR ---
CALLED [facility] AGAIN. ACCEPTING NURSING EDUCATION SPECIALIST NOT AVAILABLE TO TAKE CALL AT THE MOMENT, LEFT MESSAGE FOR ACCEPTING [facility] RN TO CALL BACK.
[2018-09-16] MEDS ORDERED: CIPROFLOXACIN 250 MG TAB PO SCH (21:00)
== END 2018-09-16 16:00 | DRG 871 ==
LOC: MED 15:58 → MTU 18:43
PROVIDERS: ADMIT General Practice; ATTEND General Practice
DX: A41.9 Sepsis, unspecified organism (principal); N17.0 Acute kidney failure with tubular necrosis; N39.0 Urinary tract infection, site not specified; E44.0 Moderate protein-calorie malnutrition; I48.92 Unspecified atrial flutter; M86.8X7 Other osteomyelitis, ankle and foot; L97.419 Non-pressure chronic ulcer of right heel and midfoot with unspecified severity; D68.59 Other primary thrombophilia; E11.65 Type 2 diabetes mellitus with hyperglycemia; E87.5 Hyperkalemia; E87.8 Other disorders of electrolyte and fluid balance, not elsewhere classified; E11.621 Type 2 diabetes mellitus with foot ulcer; E11.610 Type 2 diabetes mellitus with diabetic neuropathic arthropathy; E11.69 Type 2 diabetes mellitus with other specified complication; E11.51 Type 2 diabetes mellitus with diabetic peripheral angiopathy without gangrene; E11.21 Type 2 diabetes mellitus with diabetic nephropathy; E83.52 Hypercalcemia; E11.40 Type 2 diabetes mellitus with diabetic neuropathy, unspecified; E83.42 Hypomagnesemia; R31.9 Hematuria, unspecified; E86.0 Dehydration; I44.30 Unspecified atrioventricular block; I10 Essential (primary) hypertension; D64.9 Anemia, unspecified; B96.1 Klebsiella pneumoniae [K. pneumoniae] as the cause of diseases classified elsewhere; B95.1 Streptococcus, group B, as the cause of diseases classified elsewhere; Z68.23 Body mass index [BMI] 23.0-23.9, adult; Z79.84 Long term (current) use of oral hypoglycemic drugs; Z89.411 Acquired absence of right great toe; Z98.41 Cataract extraction status, right eye; Z87.891 Personal history of nicotine dependence; Z91.14 Patient's other noncompliance with medication regimen
CPT/HCPCS: 36415; 71045; 73630; 76770; 78315; 80048; 80053; 80305; 81001; 82150; 82948; 83036; 83605; 83690; 83735; 83880; 84100; 84443; 84484; 85025; 85610; 85651; 85730; 86140; 87040; 87070; 87075; 87081; 87086; 87186; 87205; 87804; 90715; 93005; 93925; 93970; 96361; 96374; 99291; A9503; J0295; J0696; J1815; J1885; J2543; J3370; J3475; J3490; J7030; J7060; Q0092

== ENCOUNTER 2018-11-07 14:10 | Emergency (ER) | payer OTHER, MEDICAID ==
[~2018-11-07] VITALS: Ht 175.3 cm; Wt 71.7 kg
[~2018-11-07 14:10] MED LIST: ACET-1182 PO; ACET-9525 PO; AMOX-999 PO; ASPI81CT95 PO; ATOR20TA40 PO; CIPR500T4 PO; D50SYR IVP; DOCU-299 PO; GLIP10TA12 PO; GLUC-805 FS; HUMSLIDE SUBQ; LACT10CA PO; LISI-424 PO; MAG400 PO; METF500T PO; ONDA2SOL45 IM/IVP; [UNRECOGNIZED DRUG - CODE] IV
[2018-11-07 14:49] VITALS: BP 147/63
--- NOTE | 2018-11-07 15:16 | NUR ---
PT BIB SELF TO THE ED WITH THE CHIEF C/O LEFT FOOT PAIN FOR 3 DAYS. DIABETIC WOUND NOTED ON BOTH FEET COVERED WITH DRESSING. DRESSING DRY. PT REPORTS NAUSEA, BACK PAIN AND WEAKNESS. PT ALSO REPORT BURNING URINATION. NO BLOOD IN URINE. DENIES ANY OTHER PROBLEM.
[2018-11-07] MEDS ORDERED: HYDROcodone/APAP 5/325 MG 1 TAB TAB PO ONE (16:25)
[2018-11-07] MEDS ORDERED: SULFAMETH/TRIMETH DS 800/160MG 1 TAB PO ONE (16:25)
[2018-11-07] MEDS ORDERED: CEPHALEXIN 500 MG CAP PO ONE (16:25)
[2018-11-07] MEDS ORDERED: metFORMIN 500 MG TAB PO STA (17:02)
--- NOTE | 2018-11-07 17:51 | NUR ---
DRESSING CHANGED TO B/L DIABETIC FOOT WOUND.
--- NOTE | 2018-11-07 17:59 | NUR ---
Patient discharged with v/s stable. Written and verbal after care instructions given and explained. Patient alert, oriented and verbalized understanding of instructions. Ambulatory with steady gait. All questions addressed prior to discharge. ID band removed. Patient advised to follow up with PMD. Rx of BACTRIM, KEFLIX, GLIPIZIDE AND METFORMIN given. Patient educated on indication of medication including possible reaction and side effects. Opportunity to ask questions provided and answered.
[2018-11-07 18:00] VITALS: BP 134/66
== END 2018-11-07 17:59 | disposition home or self-care (01) ==
LOC: MED 14:10
DX: L03.116 Cellulitis of left lower limb (principal); E11.65 Type 2 diabetes mellitus with hyperglycemia; Z89.411 Acquired absence of right great toe; Z89.422 Acquired absence of other left toe(s); Z79.82 Long term (current) use of aspirin; Z79.1 Long term (current) use of non-steroidal anti-inflammatories (NSAID); Z79.4 Long term (current) use of insulin; Z79.2 Long term (current) use of antibiotics; Z79.899 Other long term (current) drug therapy
CPT/HCPCS: 73630; 82948; 99284

== ENCOUNTER 2018-11-13 11:15 | Inpatient (IN) | payer OTHER, MEDICAID ==
[~2018-11-13] VITALS: Ht 175.3 cm; Wt 64.9 kg
[2018-11-13 11:25] VITALS: BP 135/76
--- NOTE | 2018-11-13 11:27 | NUR ---
Patient transferred to bed 2 via wheelchair by nurse. RN evaluating patient at bedside.
--- NOTE | 2018-11-13 11:30 | NUR ---
PT BIB FAMILY C/O SOB X 3 WEEKS, LT FOOT PAIN/WOUND RECHECK X 1 MTH, UTI S/S X 2DAYS. PAIN 11/22 HX-DM. BS-325. PATIENT POSITIONED FOR COMFORT; HOB ELEVATED; BEDRAILS UP X2; BED DOWN. ER MADE AWARE OF PT STATUS. Addendum: 11/13/18 at 1151 by [facility] WOUND BOTH FOOT
--- NOTE | 2018-11-13 11:40 | NUR ---
ER AT BEDSIDE
[2018-11-13] MEDS ORDERED: NACL 0.9% 2,000 ML IV SCH (12:02)
[2018-11-13] MEDS ORDERED: NEOMYCIN/POLYMYXIN/BACITRACIN 0.9 GM/1 PKT TP ONE (12:05)
[2018-11-13] MEDS ORDERED: PIPERACILLIN/TAZOBACTAM 3.375 GM in DEXT 5% MINI-BAG PLUS 50 ML IV ONE (12:05)
[2018-11-13] MEDS ORDERED: PIPERACILLIN/TAZOBACTAM 3.375 GM VIAL IV ONE (12:31)
[2018-11-13 12:45] LABS: BASOPHILS % (AUTO) 0.1 % (0.0-2.0); EOSINOPHILS # (AUTO) 0.2 K/uL (0-0.4); HEMATOCRIT 29.4 % (36-52); HEMOGLOBIN 9.5 g/dL (12.0-18.0); LYMPHOCYTES # (AUTO) 1.1 K/uL (2.0-11.5); LYMPHOCYTES % (AUTO) 6.9 % (20.5-51.1); MEAN CORPUSCULAR HEMOGLOBIN 25 pg (27-31); MEAN CORPUSCULAR HGB CONC 32 g/dL (33-37); MEAN CORPUSCULAR VOLUME 78.3 fL (80-94); MONOCYTES # (AUTO) 0.6 K/uL (0.8-1.0); MONOCYTES % (AUTO) 3.6 % (1.7-9.3); NEUTROPHILS # (AUTO) 14.3 K/uL (1.8-7.7); NEUTROPHILS % (AUTO) 88.4 % (42.2-75.2); PLATELET COUNT (AUTO) 525 K/uL (140-450); RED BLOOD CELL COUNT(AUTO) 3.76 MIL/uL (4.20-6.10); RED CELL DISTRIBUTION WIDTH 15.6 % (11.6-13.7)
--- NOTE | 2018-11-13 12:57 | NUR ---
US AT BEDSIDE
[2018-11-13 13:03] LABS: APPEARANCE,URINE CLOUDY (CLEAR); BILIRUBIN,URINE NEGATIVE (NEGATIVE); BLOOD, URINE 2+ (NEGATIVE); COLOR,URINE YELLOW (YELLOW); LEUKOCYTE ESTERASE ,URINE 2+ (NEGATIVE); NITRITE, URINE NEGATIVE (NEGATIVE); PH,URINE 5.5 (5.0-9.0); UGLUCOSE 1+ (NEGATIVE)
[2018-11-13 13:11] LABS: WHITE BLOOD COUNT (AUTO) 16.2 K/uL (4.8-10.8)
[2018-11-13 13:12] LABS: ANION GAP 15.1 (8-16); CARBON DIOXIDE 25.6 mmol/L (21-32); CREATININE 1.6 mg/dL (0.7-1.3); POTASSIUM 4.7 mmol/L (3.5-5.1)
[2018-11-13 13:14] LABS: PROTHROMBIN TIME 10.2 secs (10.8-13.4)
[2018-11-13 13:15] LABS: ACETONE, SERUM NEGATIVE (NEGATIVE)
[2018-11-13 13:18] LABS: ALBUMIN 2.5 g/dL (3.4-5.0); TOTAL BILIRUBIN 0.1 mg/dL (0.0-1.0)
[2018-11-13 13:21] LABS: WBC,URINE TOO MANY TO COUNT /HPF (0-5)
[2018-11-13 13:22] LABS: MAGNESIUM 1.6 mg/dL (1.8-2.4)
[2018-11-13] MEDS ORDERED: ACETAMINOPHEN 325 MG TAB PO PRN (13:30)
[2018-11-13] MEDS ORDERED: INSULIN REGULAR, HUMAN 100 UNIT/ML VIAL SUBQ ONE (13:30)
[2018-11-13] MEDS ORDERED: LORazepam 2 MG/ML VIAL IM/IVP PRN ×2 (13:30→14:00)
[2018-11-13] MEDS ORDERED: HYDROcodone/APAP 5/325 MG 1 TAB TAB PO PRN (13:30)
[2018-11-13] MEDS ORDERED: ONDANSETRON 4 MG/2 ML VIAL IM/IVP PRN (13:30)
[2018-11-13] MEDS ORDERED: MORPHINE SULFATE 2 MG/ML SYR IVP PRN (13:30)
[2018-11-13] MEDS ORDERED: DOCUSATE SODIUM 100 MG GELCAP PO PRN (13:30)
[2018-11-13] MEDS ORDERED: THIAMINE 200 MG/2 ML VIAL IM ONE (13:30)
[2018-11-13 13:53] LABS: URIC ACID 4.2 mg/dL (2.6-7.2)
[2018-11-13] MEDS ORDERED: MAGNESIUM OXIDE 400 MG TAB PO SCH (14:00)
--- NOTE | 2018-11-13 14:26 | NUR ---
Patient will be admitted to care of DR NEW. Admited to TELE. Will go to room 118A. Belongings list completed. Report to BECCA MADRID.
--- NOTE | 2018-11-13 14:26 | NUR ---
PT ARRIVED ON UNIT VIA GURNEY RECEIVED REPORT FROM ER NURSE. PT IS STABLED. PERFORMED INITIAL ASSESSMENT OF PT, IV IS PATENT AND RUNNING FLUIDS. PT COMPLAINED OF PAIN IN FEET AND ADMINISTERED NORCO PER ORDERS. PERFORMED VITALS WILL CONTINUE TO MONITOR.
[2018-11-13 14:27] LABS: BARBITURATE, URINE NEG. ng/ml (NEG <=200); BENZODIAZEPINE, URINE NEG. ng/mL (NEG <=200); CANNABINOID, URINE NEG. ng/mL (NEG <=50); COCAINE, URINE NEG. ng/mL (NEG <=300); OPIATE, URINE NEG. ng/mL (NEG <=2000); PHENCYCLIDINE SCREEN,URINE NEG. ng/mL (NEG <=25)
[2018-11-13] MEDS: NACL 0.9% 1,000 ML IV SCH (14:36)
[2018-11-13 14:45] LABS: PHOSPHORUS 3.2 mg/dL (2.5-4.9)
[2018-11-13 15:15] VITALS: BP 138/73
--- NOTE | 2018-11-13 15:59 | NUR ---
FREQUENT ROUNDING ON PT. PT IS IN BED AWAKE AND ALERT. PT GROANING IN PAIN. WHEN ASKED ABOUT HIS PAIN HE SAID IS HAS IMPROVED SINCE RECEIVING PAIN MEDICATIONS. WILL CONTINUE TO MONITOR.
[2018-11-13 16:00] VITALS: BP 138/64
--- NOTE | 2018-11-13 16:58 | NUR ---
PODIATRY DR AT PT BEDSIDE FOR BILATERAL DM FOOT ULCER. PERFORMED WOUND ASSESSMENT AND WOUND CARE. THEY ANSWERED SOME QUESTIONS FOR THE PATIENT. PT RESTING COMFORTABLY
[2018-11-13] MEDS ORDERED: DEXTROSE 50% 50 ML SYR IVP PRN (17:40)
--- NOTE | 2018-11-13 17:50 | NUR ---
FRQUENT ROUNDING ON PT. PT RESTING IN BED, NO COMPLAINTS OF PAIN. WILL CONTINUE TO MONITOR
[2018-11-13] MEDS: PIPER/TAZO 3.375GM/D5W PREMIX 50 ML IV SCH (18:19)
--- NOTE | 2018-11-13 19:15 | NUR ---
PT AWAKE, ALERT AND ORIENTED. PT'S DINNER TRAY GIVEN. INITIAL ASSESSMENT DONE. VITAL SIGNS CHECKED. PT'S BP ELEVATED. PT SAID ITS BECAUSE HE HASN'T EATEN YET. WILL RECHECK BP. NO PAIN AT THSI TIME. SAFETY ENSURED. CALL LIGHT W/IN REACH. CONTACT PRECAUTION REINFORCED. Addendum: 11/13/18 at 2017 by Gwen Kee RN DOCUMENTATION FOR 1944
--- NOTE | 2018-11-13 19:40 | NUR ---
ENDORSED SMOKED MEAT PREPARER NURSE. PT IN BED. PT APPEARS STABLE AND IN NO APPARENT DISTRESS. PT REQUESTING DINNER TRAY BECAUSE HE NEVER RECEIVED ONE. FNS CONTACTED
[2018-11-13 20:00] VITALS: BP 167/65
[2018-11-13] MEDS: BLOOD GLUCOSE MONITORING 1 DEV DEV FS SCH (21:00)
[2018-11-13] MEDS ORDERED: ZOLPIDEM 5 MG TAB PO PRN (21:00)
--- NOTE | 2018-11-13 21:25 | NUR ---
DR EDWARDS CAME TO SEE THE PATIENT. MEDICATION GIVEN W/ TEACHING. PT VERBALIZED UNDERSTANDING. PT ASKED FOR YONATAN CRACKERS.
--- NOTE | 2018-11-13 22:20 | NUR ---
BLOOD SUGAR CHECKED:190. WILL COVER W/ INSULIN ORDERED. PT ASKING SOMETHING FOR SLEEP AND BLANKET. WILL GIVE ONE.
[2018-11-13] MEDS: INSULIN LISPRO SLIDING SCALE 100 UNITS/ML VIAL SUBQ PRN (22:31)
[2018-11-14 00:30] VITALS: BP 128/65
--- NOTE | 2018-11-14 00:30 | NUR ---
SEEN PT APPEARS ASLEEP BUT EASILY AROUSABLE. VITAL SIGNS CHECKED. PT ASKED FOR SLEEPING MEDICINE. PT GIVEN MEDICATIONS ORDERED W/ TEACHINGS. PT DENIES ANY OTHER NEEDS.
[2018-11-14] MEDS: PIPER/TAZO 3.375GM/D5W PREMIX 50 ML IV SCH ×4 (00:31→18:24)
[2018-11-14 04:30] VITALS: BP 125/61
--- NOTE | 2018-11-14 04:30 | NUR ---
SEEN PT ASLEEP BUT EASILY AROUSABLE. VITAL SIGNS CHECKED. PT DENIES ANY PAIN OR DISCOMFORT. IVF BAG CHANGED. URINAL EMPTIED. PT AWARE THAT HE WILL HAVE SURGERY TO CLEAN HIS FEET WOUND. INFORMED HIM SURGERY WILL BE AT 12 NOON. PT VERBALIZED UNDERSTANDING.
[2018-11-14] MEDS: NACL 0.9% 1,000 ML IV SCH (04:34)
--- NOTE | 2018-11-14 06:20 | NUR ---
AWAKEN PT. BLOOD SUGAR CHECKED:150. NO COVERAGE. PO MEDICATION W/ TEACHING GIVEN ORDERED. PT DOESN'T WANT TO SIGN CONSENT UNLESS HE SPEAKS TO MD. WILL ENDORSE TO DAYSHIFT NURSE. PT DENIES ANY DISCOMFORT.
[2018-11-14] MEDS: BLOOD GLUCOSE MONITORING 1 DEV DEV FS SCH ×4 (06:33→20:57)
[2018-11-14] MEDS: glipiZIDE 10 MG TAB PO SCH ×2 (06:34→17:28)
[2018-11-14 06:46] LABS: BASOPHILS % (AUTO) 0.4 % (0.0-2.0); EOSINOPHILS # (AUTO) 0.4 K/uL (0-0.4); EOSINOPHILS % (AUTO) 3.7 % (0.0-4.0); HEMATOCRIT 26.8 % (36-52); HEMOGLOBIN 8.6 g/dL (12.0-18.0); LYMPHOCYTES # (AUTO) 1.4 K/uL (2.0-11.5); LYMPHOCYTES % (AUTO) 14.3 % (20.5-51.1); MEAN CORPUSCULAR HEMOGLOBIN 25 pg (27-31); MEAN CORPUSCULAR HGB CONC 32 g/dL (33-37); MEAN CORPUSCULAR VOLUME 78.8 fL (80-94); MONOCYTES # (AUTO) 0.6 K/uL (0.8-1.0); NEUTROPHILS # (AUTO) 7.3 K/uL (1.8-7.7); NEUTROPHILS % (AUTO) 75.6 % (42.2-75.2); PLATELET COUNT (AUTO) 488 K/uL (140-450); RED CELL DISTRIBUTION WIDTH 15.5 % (11.6-13.7); WHITE BLOOD COUNT (AUTO) 9.6 K/uL (4.8-10.8)
[2018-11-14 07:06] LABS: ANION GAP 14.4 (8-16); CARBON DIOXIDE 26.4 mmol/L (21-32); CREATININE 1.3 mg/dL (0.7-1.3); POTASSIUM 4.8 mmol/L (3.5-5.1)
[2018-11-14 07:12] LABS: MAGNESIUM 1.7 mg/dL (1.8-2.4); PHOSPHORUS 3.4 mg/dL (2.5-4.9)
--- NOTE | 2018-11-14 07:32 | NUR ---
RECEIVED BEDSIDE REPORT FROM APPLIANCE INSTALLER NURSE. PT AWAKE IN BED PT IS AWARE OF PLAN OF CARE. PT APPEARS STABLE AND IN NO APPARENT DISTRESS WILL CONTINUE.
[2018-11-14] MEDS ORDERED: metFORMIN 500 MG TAB PO SCH (08:00)
[2018-11-14] MEDS ORDERED: SODIUM FERRIC GLUCONATE 125 MG in NACL 0.9% 100 ML IV SCH (08:00)
--- NOTE | 2018-11-14 08:00 | NUR ---
RECEIVED PHONE CALL FROM [facility] ABOUT 3D BONE SCAN OF FOOT ORDERED SHE IS IN [place] AND WONT BE ABLE TO COME LATER. INFORMED HER ABOUT SCHEDULED DEBRIDEMENT OF THE FOOT AT NOON. SHE ASKED TO CONTACT THE ORDERING PHYSICIAN TO CLARIFY SINCE SHE STATED THE BONE SCAN WOULD BE INACCURATE IF PERFORMED AFTER DEBRIDEMENT
[2018-11-14 08:18] LABS: FOLIC ACID 6.4 ng/mL (>3.0)
--- NOTE | 2018-11-14 08:30 | NUR ---
SPOKE WITH DR FROM DR [facility] SHE SAID SHE WILL CONTACT DR. NEW ABOUT THE ORDER FOR THE 3D BONE SCAN AND THE URGENCY OF THE DEBRIDEMENT OF THE GANGRENE IN THE FOOT
--- NOTE | 2018-11-14 08:39 | NUR ---
PATIENT HAS BEEN SCREENED AND CATEGORIZED HIGH NUTRITION RISK. PATIENT WILL BE SEEN WITHIN 1-2 DAYS OF ADMISSION. 11/14/18-11/15/[address]
[2018-11-14] MEDS ORDERED: LACTOBACILLUS RHAMNOSUS GG 1 EACH CAP PO SCH (09:00)
[2018-11-14] MEDS: FERROUS SULFATE 325 MG TABEC PO SCH ×2 (09:00→17:28)
[2018-11-14] MEDS: ASPIRIN 81 MG TAB.CHEW PO SCH (09:00)
--- NOTE | 2018-11-14 09:00 | NUR ---
telemetry box removed as ordered, pt is on medsurg status now.
[2018-11-14] MEDS: LACTOBACILLUS RHAMNOSUS GG 1 EACH CAP PO SCH (09:18)
--- NOTE | 2018-11-14 09:30 | NUR ---
HEPARIN NOT GIVEN PT GOING FOR SURGICAL PROCEDURE. PT REFUSED HIS ASPIRIN. PROVIDED PT EDUCATION PT STATED HE KNOWS WHAT ASPIRIN IS FOR AND HE DOES NOT WANT IT. PT TOOK HIS LACTOBACILLUS.
--- NOTE | 2018-11-14 11:45 | NUR ---
DR. [facility] HERE TO SEE PT. PER DR. MONTOYA, PT REFUSED SURGERY, RISKS AND CONSEQUENCES EXPLAINED TO PT, VERBALIZED UNDERSTANDING. DR. STORM NOTIFIED.
--- NOTE | 2018-11-14 12:00 | NUR ---
DR. SHARP FROM [facility] AT PT BEDSIDE GOING OVER [employer] PT REFUSED SURGERY AND WANTS ANOTHER OPINION. DR'S ARE AWARE. PT IS WILLING TO GO TO 3D BONE SCAN THIS EVENING AROUND 1800. [facility] FROM [facility] IS AWARE OF THE PLAN AND WILL BE HERE THIS EVENING FOR THE BONE SCAN. DR. VILLALOBOS IS SCHEDULED FOR A CONSULT TOMORROW.
--- NOTE | 2018-11-14 12:15 | NUR ---
PT IS TAKEN OF NPO AND DR ORDERED PT A DIET. PT IS REQUESTING A MEAL TRAY BECAUSE HE IS HUNGRY. DIETARY CONSULT AT BEDSIDE EARLIER
--- NOTE | 2018-11-14 14:30 | NUR ---
11/14/18 RD INITIAL ASSESSMENT COMPLETED PLEASE REFER TO NUTRITION ASSESSMENT UNDER CARE ACTIVITY FOR ESTIMATED NUTRITIONAL NEEDS. 1. RECOMMEND CCHO 60GM DIET TOLERATED 2. CONSIDER DISCONTINUING RENAL DIET, NO SIGNIFICANT EVIDENCE FOR IT. 3. RD PROVIDED DIABETES NUTRITION EDUCATION. 4. RD TO FOLLOW-UP 2-3 DAYS, HIGH RISK LONNIE RIVAS RD
[2018-11-14] MEDS ORDERED: MAG SULF 2000 MG/WATER PREMIX 100 ML IV SCH (15:00)
--- NOTE | 2018-11-14 17:05 | NUR ---
REUBEN FROM [facility] CALLED AND SAID SHE IS RUNNING LATE AND TO EXPECT HER AROUND 1800. SHE IS STILL PLANNING ON COMING, JUST RUNNING LATE
[2018-11-14] MEDS: INSULIN LISPRO SLIDING SCALE 100 UNITS/ML VIAL SUBQ PRN ×2 (17:58→20:59)
--- NOTE | 2018-11-14 18:00 | NUR ---
GAVE 2UNITS HUMALOG FOR BLOOD GLUCOSE. SLIDING SCALE CALLS FOR 6UNITS BUT PT STATED HE ONLY WANTED 2UNITS AND IF HE GOT ANY MORE THAN 2UNITS HE WOULD DROP TO DRAMATICALLY. PT INFORMED OF THE RISKS ASSOCIATED WITH DECREASED DOSAGE OF INSULIN AND STILL ONLY WANTED 2UNITS.
[2018-11-14 18:15] VITALS: BP 117/61
--- NOTE | 2018-11-14 18:45 | NUR ---
PT LEFT TO RADIOLOGY FOR 3D SCAN VIA WHEELCHAIR. WITH REUBEN. PT WAS IN STABLE CONDITION WHEN LEFT.
--- NOTE | 2018-11-14 19:10 | NUR ---
PT RETURNED TO BED. REUBEN INFORMED ME THAT THEY WERE UNABLE TO PERFORM THE BONE SCAN DUE TO MACHINE FAILURE. WILL INFORM CHARGE NURSE AND NIGHTSHIFT.
--- NOTE | 2018-11-14 19:31 | NUR ---
ENDORSED PIPE MAKER NURSE. PT STABLE IN BED. IV FLUIDS RECONNECTED SCD'S PLACED BACK ON PT.
--- NOTE | 2018-11-14 19:32 | NUR ---
RECEIVED REPORT FROM MANJIT-RN AT BEDSIDE. PT RESTING IN BED, AOX4, ON ROOM AIR WITH LEFT AC #24G. ON CONTACT PRECAUTIONS FOR MDRO OF WOUND. WOUNDS ON BOTH FEET- SEE WOUND ASSESSMENT. DISCUSSED PLAN OF CARE AND PT VERBALIZED UNDERSTANDING. NO S/S OF RESPIRATORY DISTRESS OR DISCOMFORT NOTED AT THIS TIME. BED IN LOWEST POSITION, BED BREAKS ON, BOTH SIDE RAILS UP WITH BOTH FALL AND CONTACT PRECAUTIONS IN PLACE. BEDSIDE TABLE AND CALL LIGHT ARE WITHIN REACH. WILL CONTINUE TO MONITOR.
[2018-11-14 20:00] VITALS: BP 127/59
--- NOTE | 2018-11-14 20:00 | NUR ---
VITAL SIGNS TAKEN AND TOLERATED WELL. BLOOD GLUCOSE 210- WILL ADMINISTER INSULIN COVERAGE. NO S/S OF RESPIRATORY DISTRESS OR DISCOMFORT NOTED AT THIS TIME. WILL CONTINUE TO MONITOR.
[2018-11-14] MEDS ORDERED: ZOLPIDEM 5 MG TAB PO SCH (20:30)
--- NOTE | 2018-11-14 20:59 | NUR ---
SCHEDULED MEDICATION GIVEN AND TOLERATED WELL. PT REFUSING TO TAKE SLIDING SCALE INSULIN COVERAGE- PT WILL ONLY TAKE 2 UNITS OF INSULIN COVERAGE. NO S/S OF RESPIRATORY DISTRESS OR DISCOMFORT NOTED AT THIS TIME. WILL CONTINUE TO MONITOR.
--- NOTE | 2018-11-14 22:04 | NUR ---
PT REQUESTING SLEEPING AID STATING SINCE EYE SURGERY HE HAS BEEN UNABLE TO SLEEP. SPOKE WITH DR. CAMMY CEDENO AND ORDERED AMBIEN. PT TOLERATED WELL. NO S/S OF RESPIRATORY DISTRESS OR DISCOMFORT NOTED AT THIS TIME. WILL CONTINUE TO MONITOR.
[2018-11-14] MEDS ORDERED: PIPERACILLIN/TAZOBACTAM 3.375 GM VIAL IV ONE (23:58)
[2018-11-15] VITALS: BP 127/77
--- NOTE | 2018-11-15 | NUR ---
VITAL SIGNS TAKEN AND TOLERATED WELL. NO S/S OF RESPIRATORY DISTRESS OR DISCOMFORT NOTED AT THIS TIME. WILL CONTINUE TO MONITOR.
[2018-11-15] MEDS: PIPER/TAZO 3.375GM/D5W PREMIX 50 ML IV SCH ×3 (00:13→12:07)
--- NOTE | 2018-11-15 00:13 | NUR ---
SCHEDULED MEDICATION ZOSYN GIVEN AND TOLERATED WELL. NO S/S OF RESPIRATORY DISTRESS OR DISCOMFORT NOTED AT THIS TIME. WILL CONTINUE TO MONITOR.
--- NOTE | 2018-11-15 02:00 | NUR ---
PT CONTINUES TO SLEEP IN BED. NO S/S OF RESPIRATORY DISTRESS OR DISCOMFORT NOTED AT THIS TIME. WILL CONTINUE TO MONITOR.
[2018-11-15] MEDS: NACL 0.9% 1,000 ML IV SCH ×2 (03:02→23:11)
--- NOTE | 2018-11-15 04:00 | NUR ---
PT SLEEPING IN BED. NO S/S OF RESPIRATORY DISTRESS OR DISCOMFORT NOTED AT THIS TIME. WILL CONTINUE TO MONITOR.
--- NOTE | 2018-11-15 05:30 | NUR ---
SCHEDULED MEDICATION GIVEN AND TOLERATED WELL. NO S/S OF RESPIRATORY DISTRESS OR DISCOMFORT NOTED AT THIS TIME. WILL CONTINUE TO MONITOR.
--- NOTE | 2018-11-15 06:00 | NUR ---
BLOOD GLUCOSE 231- WILL ADMINISTER INSULIN COVERAGE. NO S/S OF RESPIRATORY DISTRESS OR DISCOMFORT NOTED AT THIS TIME. WILL CONTINUE TO MONITOR.
--- NOTE | 2018-11-15 06:00 | NUR ---
NEW IV SITE DUE TO ACCIDENTAL REMOVAL BY PT- CANNULA INTACT. NEW IV SITE ON RIGHT FA #24G-FLUSHING WELL. TWO ATTEMPTS. PT TOLERATED WELL.
[2018-11-15] MEDS: BLOOD GLUCOSE MONITORING 1 DEV DEV FS SCH ×4 (06:48→20:15)
[2018-11-15] MEDS: glipiZIDE 10 MG TAB PO SCH ×2 (06:48→16:10)
[2018-11-15] MEDS: INSULIN LISPRO SLIDING SCALE 100 UNITS/ML VIAL SUBQ PRN ×4 (06:52→20:34)
--- NOTE | 2018-11-15 06:52 | NUR ---
SCHEDULED MEDICATION GIVEN AND 2-UNITS OF INSULIN GIVEN- PT CONTINUES TO REFUSED SLIDING SCALE. NO S/S OF RESPIRATORY DISTRESS OR DISCOMFORT NOTED AT THIS TIME. WILL CONTINUE TO MONITOR.
[2018-11-15 07:01] LABS: BASOPHILS % (AUTO) 0.4 % (0.0-2.0); EOSINOPHILS # (AUTO) 0.3 K/uL (0-0.4); EOSINOPHILS % (AUTO) 3.7 % (0.0-4.0); HEMATOCRIT 27.7 % (36-52); HEMOGLOBIN 9.1 g/dL (12.0-18.0); LYMPHOCYTES # (AUTO) 1.3 K/uL (2.0-11.5); LYMPHOCYTES % (AUTO) 13.8 % (20.5-51.1); MEAN CORPUSCULAR HEMOGLOBIN 26 pg (27-31); MEAN CORPUSCULAR HGB CONC 33 g/dL (33-37); MEAN CORPUSCULAR VOLUME 78.4 fL (80-94); MONOCYTES # (AUTO) 0.5 K/uL (0.8-1.0); MONOCYTES % (AUTO) 5.7 % (1.7-9.3); NEUTROPHILS # (AUTO) 7.2 K/uL (1.8-7.7); NEUTROPHILS % (AUTO) 76.4 % (42.2-75.2); PLATELET COUNT (AUTO) 550 K/uL (140-450); RED BLOOD CELL COUNT(AUTO) 3.53 MIL/uL (4.20-6.10); RED CELL DISTRIBUTION WIDTH 15.9 % (11.6-13.7); WHITE BLOOD COUNT (AUTO) 9.4 K/uL (4.8-10.8)
--- NOTE | 2018-11-15 07:10 | NUR ---
ENDORSED PT CARE TO DAY SHIFT NURSE SITAL-RN FOR CONTINUITY OF CARE.
--- NOTE | 2018-11-15 07:11 | NUR ---
RECEIVED REPORT FROM PM NURSE AT BEDSIDE. PT SLEEPING ON HIS BED. PT ON CONTACT ISOLATION FOR MDRO IN THE WOUND. PT HAS GANGRENE ON THE LFT FOOT AND RT TOE AMPUTATION. YUMIKO ANY PAIN AT THIS TIME. CALL LIGHT WITHIN REACH. USES URINAL AT THE BEDSIDE. NO SIGN OF DISTRESS NOTED. IVF INFUSING WELL. INFORMED TO USE CALL LIGHT FOR ANY HELP. WILL CONTINUE TO MONITOR PT.
[2018-11-15] MEDS ORDERED: MORPHINE SULFATE 2 MG/ML SYR IVP SCH ×2 (07:13→11:00)
[2018-11-15 07:27] LABS: CARBON DIOXIDE 27.9 mmol/L (21-32); CREATININE 1.3 mg/dL (0.7-1.3); POTASSIUM 4.9 mmol/L (3.5-5.1)
[2018-11-15 07:33] LABS: MAGNESIUM 1.9 mg/dL (1.8-2.4); PHOSPHORUS 3.1 mg/dL (2.5-4.9)
[2018-11-15 08:00] VITALS: BP 123/61
[2018-11-15] MEDS: FERROUS SULFATE 325 MG TABEC PO SCH ×2 (08:00→16:11)
[2018-11-15] MEDS: ASPIRIN 81 MG TAB.CHEW PO SCH (09:00)
[2018-11-15] MEDS: LACTOBACILLUS RHAMNOSUS GG 1 EACH CAP PO SCH (09:03)
--- NOTE | 2018-11-15 09:09 | NUR ---
ADMINISTERED MEDS TO PT ORDERED. REFUSED TO TAKE THE ASPIRIN. CALL LIGHT WITHIN PT REACH. INFORMED TO USE CALL LIGHT FOR ANY HELP. PT INFORMED OF THE BONE SCAN . STATES WILL GO TO THE BONE SCAN. WILL CONTINUE TO MONITOR PT.
--- NOTE | 2018-11-15 10:00 | NUR ---
No Wound care consult done. per pt. "no need, they just want to cut my feet without treating it." explain to pt wound consult purpose, pt. start asking a lot of surgical questions and explain to pt. will ask internal communications writer to come back to explain more. pt. refused. Pt. has seen and consult with podiatry on 11/13/18 and 11/14/18, will continue to follow the orders. Dressing changed according to podiatry note. pt. tolerated procedures. Addendum: 11/15/18 at 1248 by Gracia Lopez RN (Grace) Above information discussed with primary RN and review podiatry consult note together, recommend to place heel raisers to bilateral heels when rest in bed.
--- NOTE | 2018-11-15 12:44 | NUR ---
ADMINISTERED 3 UNITS OF INSULIN , NON-COMPLIANCE WITH SLIDING SCALE , STATES WILL DROP HIS BLOOD SUGAR LOW. EDUCATED THAT WILL CLOSELY MONITOR THE PT, STILL DENIES THE SLIDING SCALE. NO SIGN OF DISTRESS NOTED. ALL SAFETY MEASURE IN PLACE. WILL CONTINUE TO MONITOR PT.
--- NOTE | 2018-11-15 14:00 | NUR ---
CM NOTE RECEIVED ORDER TO TRANSFER TO [facility] [place] ON 11/17/18. PER DR. SAMUEL, STILL WAITING FOR CULTURE RESULTS TO DETERMINE THE SPECIFIC IV ANTIBIOTICS. FAXED ORDER AND CLINICAL PACKET TO [facility] [place], ATTN: ENMA.
--- NOTE | 2018-11-15 14:21 | NUR ---
WOUND CARE DONE ON THE PT ADMINISTERED . PT STABLE, NO SIGN OF DISTRESS. DENIES PAIN AT THIS TIME. APPLIED HEEL PROTECTOR BILATERALLY. TOLERATED THE WOUND DRESSING CHANGE WELL. ALL SAFETY MEASURE IN PLACE. WILL CONTINUE TO MONITOR PT.
--- NOTE | 2018-11-15 16:13 | NUR ---
ADMINISTERED MEDS TO PT ORDERED. PT TOLERATED WELL. NO SIGN OF DISTRESS NOTED. ALL SAFETY MEASURE IN PLACE. WILL CONTINUE TO MONITOR PT.
--- NOTE | 2018-11-15 17:58 | NUR ---
BS 278, ADMINISTERED INSULIN 4 UNITS PER PT REQUEST. PT STATES HIS GLUCOSE LEVEL WILL GO DOWN. NO SIGN OF DISTRESS NOTED. ALL SAFETY MEASURE IN PLACE. WILL CONTINUE TO MONITOR PT.
[2018-11-15 18:00] VITALS: BP 134/65
--- NOTE | 2018-11-15 19:25 | NUR ---
ENDORSED PT TO PM NURSE AT BEDSIDE. PT IN STABLE CONDITION.
--- NOTE | 2018-11-15 19:26 | NUR ---
RECEIVED BEDSIDE REPORT FROM JOVANNY. PT IS AAO X4. ON ROOM AIR RESPIRATIONS ARE EQUAL AND UNLABORED. PT WITH WOUND ON R HEEL DRESSING IS INTACT. AND LEFT FOOT DRESSING INTACT. BOTH HAVE DRAINAGE WILL CHANGE. IV ON R FA 24G NS AT 50/M/H. PT HAD BONE SCAN RESULTS PENDING. ON CONTACT ISOLATION FOR ESBL OF WOUND. PLAN OF CARE DISCUSSED WITH PT. CALL LIGHT WITHIN REACH. WILL CONTINUE TO MONITOR.
[2018-11-15] MEDS: MEROPENEM 1,000 MG in NACL 0.9% 100 ML IV SCH (20:25)
--- NOTE | 2018-11-15 20:25 | NUR ---
DUE MEDICATIONS GIVEN PT TOLERATED WELL. BLOOD SUGAR 276 INSULIN PER SLIDING SCALE. PT TOLERATED WELL. WILL CONTINUE TO MONITOR.
--- NOTE | 2018-11-15 23:05 | NUR ---
PT REPORTS HE FEELS BLOOD SUGAR IS LOW. CHECKED 61. PT DOES NOT WANT ANY ORANGE JUICE. REQUEST VIET AND YONATAN ALLEN. WILL RECHECK. BG
--- NOTE | 2018-11-15 23:30 | NUR ---
PT REFUSED TO RECHECK BLOOD GLUCOSE. INFORMED IT IS PROTOCOL. VERBALIZED UNDERSTANDING. PT WANTS HIS BLOOD SUGAR CHECKED IN THE MORNING. NO S/S OF HYPOGLYCEMIA. CALL LIGHT WITHIN REACH. SNACK AT BEDSIDE. WILL CONTINUE TO MONITOR.
[2018-11-15] MEDS ORDERED: ZOLPIDEM 5 MG TAB PO PRN (23:50)
[2018-11-16] VITALS: BP 139/69
--- NOTE | 2018-11-16 | NUR ---
VITAL SIGNS ARE WITHIN NORMAL LIMITS. DENIES ANY PAIN. WOUND DRESSING CHANGED PER ORDERS. PT TOLERATED WELL. WILL CONTINUE TO MONITOR.
--- NOTE | 2018-11-16 04:00 | NUR ---
PT SLEEPING. RESPIRATIONS ARE EQUAL AND UNLABORED. CALL LIGHT WITHIN REACH.
[2018-11-16] MEDS: MEROPENEM 1,000 MG in NACL 0.9% 100 ML IV SCH ×3 (05:31→21:45)
[2018-11-16] MEDS: glipiZIDE 10 MG TAB PO SCH ×2 (06:29→17:14)
[2018-11-16] MEDS: BLOOD GLUCOSE MONITORING 1 DEV DEV FS SCH ×4 (06:33→21:43)
[2018-11-16] MEDS: INSULIN LISPRO SLIDING SCALE 100 UNITS/ML VIAL SUBQ PRN ×3 (06:33→21:15)
--- NOTE | 2018-11-16 06:34 | NUR ---
BLOOD GLUCOSE 245 PER SLIDING SCALE PT TO GET 4U PT ONLY WANTS 2U PER DR DOTTY ROWLEY TO ONLY ADMINISTER 2U. PT TOLERATED WELL. CALL LIGHT WITHIN REACH. WILL CONTINUE TO MONITOR.
--- NOTE | 2018-11-16 07:21 | NUR ---
GAVE BEDSIDE REPORT TO [facility]OME MADRID. PT ENDORSED IN STABLE CONDITION.
--- NOTE | 2018-11-16 07:22 | NUR ---
GOT BEDSIDE REPORT FROM [facility]. PATIENT ON MED SURGE AND CONTACT ISOLATION IN PLACE FOR ESBL, MDRO OF WOUND ON L FOOT. PATIENT AAOX4 AND ON ROOM AIR, NO DISTRESS NOTED. R FOOT CELLULITIS AND L FOOT GANGRENE, HEEL PROTECTORS IN PLACE. IV ON R FA 24 G INFUSING NS AT 50, IV ASYMPTOMATIC PATENT AND INTACT. BED IN LOW POSITION, CALL LIGHT WITHIN REACH, SIDE RAILS X2 UP
[2018-11-16 07:46] LABS: BASOPHILS % (AUTO) 0.3 % (0.0-2.0); EOSINOPHILS # (AUTO) 0.3 K/uL (0-0.4); EOSINOPHILS % (AUTO) 3.1 % (0.0-4.0); HEMATOCRIT 27.7 % (36-52); LYMPHOCYTES # (AUTO) 1.2 K/uL (2.0-11.5); LYMPHOCYTES % (AUTO) 12.6 % (20.5-51.1); MEAN CORPUSCULAR HEMOGLOBIN 26 pg (27-31); MEAN CORPUSCULAR HGB CONC 33 g/dL (33-37); MEAN CORPUSCULAR VOLUME 78.7 fL (80-94); MONOCYTES # (AUTO) 0.5 K/uL (0.8-1.0); MONOCYTES % (AUTO) 5.2 % (1.7-9.3); NEUTROPHILS # (AUTO) 7.4 K/uL (1.8-7.7); NEUTROPHILS % (AUTO) 78.8 % (42.2-75.2); PLATELET COUNT (AUTO) 539 K/uL (140-450); RED BLOOD CELL COUNT(AUTO) 3.51 MIL/uL (4.20-6.10); RED CELL DISTRIBUTION WIDTH 15.5 % (11.6-13.7); WHITE BLOOD COUNT (AUTO) 9.3 K/uL (4.8-10.8)
[2018-11-16 07:54] LABS: ANION GAP 12.5 (8-16); CARBON DIOXIDE 27.8 mmol/L (21-32); POTASSIUM 4.3 mmol/L (3.5-5.1)
[2018-11-16 07:57] LABS: MAGNESIUM 1.4 mg/dL (1.8-2.4); PHOSPHORUS 2.9 mg/dL (2.5-4.9)
[2018-11-16 08:00] VITALS: BP 126/64
[2018-11-16] MEDS: ASPIRIN 81 MG TAB.CHEW PO SCH (08:43)
[2018-11-16] MEDS: LACTOBACILLUS RHAMNOSUS GG 1 EACH CAP PO SCH (08:43)
[2018-11-16] MEDS: FERROUS SULFATE 325 MG TABEC PO SCH ×2 (08:43→17:14)
--- NOTE | 2018-11-16 08:47 | NUR ---
ADMINISTERED SCHEDULED MEDS. PATIENT REFUSED HEPARIN AND ASPIRIN
[2018-11-16] MEDS ORDERED: FLUCONAZOLE 100 MG TAB PO ONE (09:00)
[2018-11-16] MEDS ORDERED: MAG SULF 2000 MG/WATER PREMIX 100 ML IV SCH (10:00)
--- NOTE | 2018-11-16 12:25 | NUR ---
PATIENT EATING LUNCH, ON ROOM AIR, NO DISTRESS NOTED
[2018-11-16] MEDS ORDERED: ASCORBIC ACID 500 MG TAB PO SCH ×2 (14:00→21:00)
--- NOTE | 2018-11-16 14:05 | NUR ---
PATIENT SLEEPING, ON ROOM AIR, NO DISTRESS NOTED
--- NOTE | 2018-11-16 14:37 | NUR ---
11/16/18 RD FOLLOW UP COMPLETED PLEASE REFER TO NUTRITION ASSESSMENT UNDER CARE ACTIVITY FOR ESTIMATED NUTRITIONAL NEEDS. 1. CONTINUE CCHO 60 GM DIET TOLERATED 2. CONTINUE MANNY BID 3. RD TO FOLLOW-UP 5-7 DAYS, LOW RISK LONNIE RIVAS RD
--- NOTE | 2018-11-16 15:05 | NUR ---
CM NOTE PER MITZI OF [facility], THEY ARE ACCEPTING THE PATIENT AND CAN GO TO RM [address] GUARD[address]O WHEN READY FOR DISCHARGE.
[2018-11-16 16:00] VITALS: BP 134/69
--- NOTE | 2018-11-16 17:04 | NUR ---
PATIENT ON 3 L O2 VIA NC, NO DISTRESS NOTED, FRIEND AT BEDSIDE Addendum: 11/16/18 at 1805 by Jesenia Scott RN WRONG PATIENT. PLEASE DISREGARD ABOVE
[2018-11-16] MEDS: metFORMIN 500 MG TAB PO SCH (17:15)
--- NOTE | 2018-11-16 18:05 | NUR ---
CHANGED FOOT DRESSINGS, CLEANSED WITH NS, AND DRIED WITH GAUZE, BETADINE APPLIED, HEEL PROTECTORS NOW IN PLACE
[2018-11-16] MEDS: NACL 0.9% 1,000 ML IV SCH (19:11)
--- NOTE | 2018-11-16 19:35 | NUR ---
GAVE BEDSIDE REPORT TO [facility]. PATIENT ENDORSED IN STABLE CONDITION
--- NOTE | 2018-11-16 19:36 | NUR ---
RECEIVED BEDSIDE REPORT FROM ROME. PT IS AAO X4. ON ROOM AIR RESPIRATIONS ARE EQUAL AND UNLABORED. PT WITH WOUND ON R HEEL DRESSING IS INTACT. AND LEFT FOOT DRESSING INTACT. BOTH HAVE DRAINAGE WILL CHANGE. IV ON R FA 24G IV LEAKING WILL ATTEMPT TO START NEW IV. ON CONTACT ISOLATION FOR ESBL OF WOUND. PLAN OF CARE DISCUSSED WITH PT. CALL LIGHT WITHIN REACH. WILL CONTINUE TO MONITOR.
--- NOTE | 2018-11-16 20:00 | NUR ---
ATTEMPTED IV X1 UNABLE CHARGE NURSE WILL ATTEMPT TO START IV.
[2018-11-16] MEDS ORDERED: MAG SULF 2000 MG/WATER PREMIX 50 ML IV SCH (21:00)
--- NOTE | 2018-11-16 21:10 | NUR ---
VP ANALYTICS STARTED NEW IV ON R HAND 24G. IV IS PATENT AND INTACT.
[2018-11-17] VITALS: BP 142/76
--- NOTE | 2018-11-17 | NUR ---
VITAL SIGNS ARE WITHIN NORMAL LIMITS. PT DENIES SOB OR PAIN. DRESSING CHANGE DONE PER ORDERS. SEE WOUND ASSESSMENT. PT TOLERATED WELL. NO S/S OF DISTRESS. CALL LIGHT WITHIN REACH. WILL CONTINUE TO MONITOR.
--- NOTE | 2018-11-17 02:00 | NUR ---
PT SLEEPING RESPIRATIONS ARE EQUAL AND UNLABORED. NO S/S OF DISTRESS. CALL LIGHT WITHIN REACH.
--- NOTE | 2018-11-17 04:00 | NUR ---
PT SLEEPING COMFORTABLY IN BED. RESPIRATIONS ARE EQUAL AND UNLABORED. CALL LIGHT WITHIN REACH.
[2018-11-17] MEDS: MEROPENEM 1,000 MG in NACL 0.9% 100 ML IV SCH ×2 (04:40→13:16)
[2018-11-17] MEDS: BLOOD GLUCOSE MONITORING 1 DEV DEV FS SCH ×2 (06:25→12:09)
[2018-11-17] MEDS: INSULIN LISPRO SLIDING SCALE 100 UNITS/ML VIAL SUBQ PRN ×2 (06:32→12:07)
[2018-11-17] MEDS: glipiZIDE 10 MG TAB PO SCH (06:32)
[2018-11-17 06:35] LABS: ANION GAP 11.7 (8-16); CARBON DIOXIDE 29.4 mmol/L (21-32); POTASSIUM 4.1 mmol/L (3.5-5.1)
[2018-11-17 06:37] LABS: MAGNESIUM 2.1 mg/dL (1.8-2.4); PHOSPHORUS 2.8 mg/dL (2.5-4.9)
[2018-11-17 06:57] LABS: BASOPHILS % (AUTO) 0.3 % (0.0-2.0); EOSINOPHILS # (AUTO) 0.4 K/uL (0-0.4); EOSINOPHILS % (AUTO) 3.2 % (0.0-4.0); HEMATOCRIT 28.8 % (36-52); HEMOGLOBIN 9.2 g/dL (12.0-18.0); LYMPHOCYTES # (AUTO) 1.4 K/uL (2.0-11.5); LYMPHOCYTES % (AUTO) 11.9 % (20.5-51.1); MEAN CORPUSCULAR HEMOGLOBIN 25 pg (27-31); MEAN CORPUSCULAR HGB CONC 32 g/dL (33-37); MEAN CORPUSCULAR VOLUME 78.9 fL (80-94); MONOCYTES # (AUTO) 0.5 K/uL (0.8-1.0); NEUTROPHILS # (AUTO) 9.1 K/uL (1.8-7.7); NEUTROPHILS % (AUTO) 80.6 % (42.2-75.2); PLATELET COUNT (AUTO) 572 K/uL (140-450); RED BLOOD CELL COUNT(AUTO) 3.65 MIL/uL (4.20-6.10); RED CELL DISTRIBUTION WIDTH 15.4 % (11.6-13.7); WHITE BLOOD COUNT (AUTO) 11.3 K/uL (4.8-10.8)
--- NOTE | 2018-11-17 07:33 | NUR ---
GAVE BEDSIDE REPORT TO DAY SHIFT RN. PT ENDORSED IN STABLE CONDITION. CALL LIGHT WITHIN REACH.
--- NOTE | 2018-11-17 07:35 | NUR ---
RECEIVED BEDSIDE REPORT FROM LOG YARD MANAGER NURSE. PT IS RESTING ON BED AT THIS TIME. AAO X4. ON ROOM AIR. RESPIRATIONS EVEN AND UNLABORED. DENIES PAIN AND NO SIGNS OF DISTRESS NOTED. IV ON R HAND 24G, INTACT AND CLEAN, INFUSING PER MD ORDER. WOUND ON R HEEL AND L HEEL NOTED, OTHERWISE SKIN INTACT AND CLEAN. ALL DRESSINGS INTACT AND DRY. HEEL WEDGES IN PLACE. ON CONTACT ISOLATION FOR ESBL OF WOUND. PLAN OF CARE DISCUSSED WITH PT AND PT VERBALIZED UNDERSTANDING. INSTRUCTED PT TO USE CALL LIGHT FOR ANY ASSISTANCE. CALL LIGHT WITHIN REACH. BED IN LOW POSITION.
[2018-11-17 08:00] VITALS: BP 141/70
[2018-11-17] MEDS: LACTOBACILLUS RHAMNOSUS GG 1 EACH CAP PO SCH (08:36)
[2018-11-17] MEDS: metFORMIN 500 MG TAB PO SCH (08:37)
[2018-11-17] MEDS: FERROUS SULFATE 325 MG TABEC PO SCH (08:37)
[2018-11-17] MEDS: ASPIRIN 81 MG TAB.CHEW PO SCH ×3 (08:40→10:22)
--- NOTE | 2018-11-17 08:46 | NUR ---
ADMINISTERED MEDS PER MD ORDER. PATIENT REFUSED HEPARIN SUBQ AND STATED THAT " I KNOW WHAT I NEED FOR MY HEALTH. IT DOESN'T DO MY ANY GOOD. I DO NOT WANT IT." MEDICATION EDUCATION PROVIDED TO PATIENT AND PATIENT SAID "OK, I KNOW WHAT IS IT, BUT I ALSO KNOW I DON'T NEED IT." SAFETY MEASURES IN PLACE. BED IN LOW POSITION AND CALL LIGHT WITHIN REACH.
[2018-11-17] MEDS ORDERED: ASCORBIC ACID 500 MG TAB PO SCH (09:00)
[2018-11-17] MEDS ORDERED: HUMSLIDE SUBQ (09:57)
[2018-11-17] MEDS ORDERED: ASPI81CT95 PO (09:57)
[2018-11-17] MEDS ORDERED: ACET-1182 PO (09:57)
[2018-11-17] MEDS ORDERED: METF500T PO (09:57)
[2018-11-17] MEDS ORDERED: GLUC-805 FS (09:57)
[2018-11-17] MEDS ORDERED: VITC500 PO (09:57)
[2018-11-17] MEDS ORDERED: DOCU-299 PO (09:57)
[2018-11-17] MEDS ORDERED: D50SYR IVP (09:57)
[2018-11-17] MEDS ORDERED: GLIP10TA12 PO (09:57)
[2018-11-17] MEDS ORDERED: FER325 PO (09:57)
[2018-11-17] MEDS ORDERED: ACET-9525 PO (09:57)
[2018-11-17] MEDS ORDERED: LACT10CA PO (09:57)
[2018-11-17] MEDS ORDERED: MERO500P7 IV (10:49)
--- NOTE | 2018-11-17 11:40 | NUR ---
PATIENT REFUSED TO GET A PICC AND STATED THAT " I DONT NEED A PICC LINE. I DONT WANT ONE." NOTIFIED RUG LAYER ON REGARDS.
--- NOTE | 2018-11-17 12:04 | NUR ---
CM NOTE PER MITZI OF [facility] THE PATIENT CAN GO TO RM [address] GU[address]O TODAY, NUMBER TO CALL FOR REPORT # [phone]. PATIENT AND FAMILY UNABLE TO PAY FOR TRANSPORT. SPOKE WITH DELL TO SCHEDULE PATIENT'S TRANSPORT BY WHEELCHAIR, [facility] BILL, PLASTIC FINISHER TIME 1430 TODAY GOING TO [facility] RM [address] GUARDADO[address] CHARGE NURSE DORCAS LIZARRAGA
--- NOTE | 2018-11-17 12:10 | NUR ---
CHECKED BLOOD GLUCOSE AND RECEIVED 214. PATIENT SAID HE ONLY WANTS 3 UNITS OF HUMALOG INSTEAD OF FOLLOWING THE HUMALOG SLIDING SCALE FOR 4 UNITS. PATIENT STATED, "4 UNITS IS TOO MUCH FOR ME AND IT MAKES ME DIZZY." EDUCATION PROVIDED TO PATIENT AT BEDSIDE. PATIENT VERBALIZED THAT "I UNDERSTAND, BUT I KNOW MY BODY WELL. SO I NEED ONLY 3 UNIT." ADMINISTERED 3 UNITS OF HUMALOG.
--- NOTE | 2018-11-17 14:03 | NUR ---
CALLED [facility] [phone] AND GAVE FULL REPORT TO NICOLE Albrecht RN. NICOLE Albrecht VERBALIZED AND ACKNOWLEDGED THAT PATIENT WILL BE TRANSFER TO THE FACILITY AND PLACE IN ROOM 28A.
--- NOTE | 2018-11-17 15:10 | NUR ---
EDUCATED PATIENT ON DISEASE PROCESS, ABN S/SX, WHEN TO GO TO THE ER, EDUCATED ON DISCHARGE TO [facility] AND HOW TO DO WOUND CARE, PATIENT WILL FOLLOW UP W DR BETANCOURT. EDUCATED ON MEDS AND SENT TO [facility]. PATIENT REFUSED PNA AND FLU VACCINE. EDUCATED ON IMPORTANCE. EDUCATION ON SIGNS AND SYMPTOMS ON INFECTION AND HOW TO CONTROL DM, DIET, EXERCISE. PATIENT VERBALIZED UNDERSTANDING AND SIGNED PAPERWORK. ID BANDS REMOVED. IV STILL ON FOR CONTINUED ANTIBIOTICS R HAND 24G CLEAN, DRY AND INTACT. WOUND CARE PHOTOS TAKEN. PATIENT LEFT IN STABLE CONDITION W PRIMIER STAFF.
== END 2018-11-17 15:10 | DRG 871 ==
LOC: MED 11:15 → MTU 13:39
PROVIDERS: ADMIT General Practice; ATTEND General Practice
DX: A41.9 Sepsis, unspecified organism (principal); N17.0 Acute kidney failure with tubular necrosis; E43 Unspecified severe protein-calorie malnutrition; A48.0 Gas gangrene; N39.0 Urinary tract infection, site not specified; M86.9 Osteomyelitis, unspecified; E11.52 Type 2 diabetes mellitus with diabetic peripheral angiopathy with gangrene; D68.59 Other primary thrombophilia; E87.1 Hypo-osmolality and hyponatremia; M86.8X7 Other osteomyelitis, ankle and foot; E11.621 Type 2 diabetes mellitus with foot ulcer; E11.42 Type 2 diabetes mellitus with diabetic polyneuropathy; D50.9 Iron deficiency anemia, unspecified; E11.319 Type 2 diabetes mellitus with unspecified diabetic retinopathy without macular edema; I70.0 Atherosclerosis of aorta; L97.529 Non-pressure chronic ulcer of other part of left foot with unspecified severity; E83.42 Hypomagnesemia; E11.69 Type 2 diabetes mellitus with other specified complication; Z68.21 Body mass index [BMI] 21.0-21.9, adult; Z89.422 Acquired absence of other left toe(s); Z89.411 Acquired absence of right great toe; Z98.41 Cataract extraction status, right eye; Z83.3 Family history of diabetes mellitus; Z80.1 Family history of malignant neoplasm of trachea, bronchus and lung; Z11.9 Encounter for screening for infectious and parasitic diseases, unspecified
CPT/HCPCS: 36415; 36600; 71045; 73630; 78315; 80048; 80053; 80305; 81001; 82009; 82550; 82553; 82607; 82728; 82746; 82803; 82948; 83036; 83540; 83605; 83690; 83735; 83874; 83880; 84100; 84484; 84550; 85025; 85045; 85379; 85610; 85730; 87040; 87070; 87081; 87086; 87186; 93005; 93925; 96365; 96372; 99285; A9503; J1644; J1815; J2060; J2185; J2270; J2543; J2916; J3411; J3475; J7030; J7060; Q0092